=== PATIENT | female | born 1940 | race Caucasian/White ===

== ENCOUNTER 2016-08-07 12:18 | Emergency (ER) | payer MEDICARE, OTHER ==
--- NOTE | ~2016-08-07 | ER ---
PATIENT'S NAME: ROSA MARIA PATEL [facility] AGE: 76 Y [address] ROOM: [place] [address] LOCATION: [facility] ADMIT DATE: 08/07/2016 ER/Outpatient Report DISCHARGE DATE: 08/07/2016 FAMILY PHYSICIAN: Gianni Tyler MD ATTENDING PHYSICIAN: Timothy Brooke ADDENDUM: IMAGING DATA: Head CT report is normal per Radiology. MD SIMA PAYTON/modl /[id number] d: 08/08/16811 t: 08/09/16 1817, OUTPATIENT REPORT
--- NOTE | ~2016-08-07 | ER ---
PATIENT'S NAME: ROSA MARIA PATEL [facility] AGE: 76 Y [address] ROOM: [place] [address] LOCATION: [facility] ADMIT DATE: 08/07/2016 ER/Outpatient Report DISCHARGE DATE: 08/07/2016 FAMILY PHYSICIAN: Gianni Tyler MD ATTENDING PHYSICIAN: Timothy Brooke CHIEF COMPLAINT: Fever. HISTORY OF PRESENT ILLNESS: The patient arrives by ambulance. Her roommate called the ambulance for her this morning. The roommate feels that she has been having fever and has not been acting like her normal self. She is a little more slow to interact than normal. The patient does have a history of being stubborn according to a recent note from the patient's primary care, Dr. Tyler. The patient often does not listen to anesthesiology medical doctor. She denies any other significant issues. 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 She denies any other issues at this time. She has no other specific complaints other than generally feeling weak and tired. PAST MEDICAL HISTORY: Documented on the record and reviewed by me. SOCIAL HISTORY: Documented on the record and reviewed by me. MEDICATIONS: Documented on the record and reviewed by me. ALLERGIES: DOCUMENTED ON THE RECORD AND REVIEWED BY ME. REVIEW OF SYSTEMS: All systems were reviewed and negative except as noted in the HPI. PHYSICAL EXAMINATION: VITAL SIGNS: Blood pressure 125/57; pulse is 104; respiratory rate is 19; temperature 101.6; SpO2 is 88% on room air initially, 98% on 3 L nasal cannula. GENERAL: Age-appropriate female, in no obvious pain or distress, resting comfortably on the exam table. NEUROLOGIC: Awake and alert. No speech deficits. No obvious asymmetry on exam. No facial droop. The patient is oriented to person, place, and situation, but not to date. She does not reveal any obvious asymmetry on PATIENT'S NAME: ROSA MARIA PATEL [facility] AGE: 76 Y [address] ROOM: [place] [address] LOCATION: [facility] ADMIT DATE: 08/07/2016 ER/Outpatient Report DISCHARGE DATE: 08/07/2016 FAMILY PHYSICIAN: Gianni Tyler MD ATTENDING PHYSICIAN: Timothy Brooke exam. HEENT: Normocephalic, atraumatic. The eyes are PERRL. The oropharynx is clear. NECK: Supple. The trachea is midline. CHEST/HEART: Tachycardic. LUNGS: Clear to auscultation bilaterally with no rhonchi, wheezes, or rales. ABDOMEN: Obese, but nontender. No masses. No rebound or guarding. BACK: Nontender to palpation throughout. No significant skin breakdown. : Normal external genitalia, and inspection of the rectum with no significant skin breakdown. EXTREMITIES: Warm and well perfused. There is venous stasis of the bilateral lower extremities and they are obviously in poor repair, but I do not appreciate any acute processes today. SKIN: Otherwise, warm, dry, and intact. LABORATORY DATA AND X-RAYS: Chest x-ray does not reveal any abnormalities per my read. Urinalysis: 100 leukocytes, 15 protein, 25 blood. Micro reveals 10 to 20 wbc's, rare rbc's, no epithelial cells, and rare bacteria. Culture is pending. EKG reveals sinus tachycardia with significant artifact, but no obvious ischemia or dysrhythmia. Troponin is below threshold. CRP is 8.32. Free T4 is 1.1. Sodium is 141, potassium 3.3, chloride 107, CO2 is 26, BUN is 17, creatinine is 1.3, GFR is 40. LFTs are grossly normal. Amylase and lipase are 21 and 55 respectively. CK-MB is 1.7. Serum lactate 0.7. WBC 7.5, hemoglobin is 8.5, platelets of 209. Procalcitonin 0.12. TSH 0.969. INR is 1.1. IMAGING DATA: Head CT report is normal per Radiology. IMPRESSION: 1. Urinary tract infection. 2. Fever without signs of severe sepsis or septic shock. EMERGENCY DEPARTMENT COURSE: The patient was evaluated as above. I do not think that she has pneumonia, ischemia, or other intraabdominal process causing her pain at this time. The CRP is elevated and I am attributing that to her fistulization and general inflammation from her carcinomatosis. Urinalysis is diagnostic of infection. Culture is pending. I gave her Rocephin in the emergency department. The patient also received ibuprofen in addition to some fluids. Her vital signs normalized. She was not requiring any further oxygen. Blood pressures stayed stable, and she was afebrile upon discharge. The patient was at her baseline according to her friend who is with her today. I believe the patient has a UTI and that is the cause of her current extremely mild confusion with fever. I did contact Dr. Hoff, on-call provider for the patient's primary care, Dr. Tyler and made him aware of the patient should she show up in clinic. I explained that there is clinic tomorrow afternoon. I believe it is safe for the patient to go home. The patient did contract that if she were to worsen, PATIENT'S NAME: ROSA MARIA PATEL [facility] AGE: 76 Y [address] ROOM: [place] [address] LOCATION: [facility] ADMIT DATE: 08/07/2016 ER/Outpatient Report DISCHARGE DATE: 08/07/2016 FAMILY PHYSICIAN: Gianni Tyler MD ATTENDING PHYSICIAN: Timothy Brooke she would call the ambulance or return by other means for immediate evaluation in the emergency department. All questions were answered, and the patient was discharged with Bactrim pending cultures of the urine. MD SIMA PAYTON/bharat /[id number] d: 08/08/16 0856 t: 08/09/16 1814, OUTPATIENT REPORT
[~2016-08-07 12:18] MED LIST changes: -BUPROPION XL300 MG PO; -CALCIUM CARBON500 MG PO; -DULCOLAX10 MG R; -K-TAB ER20 MEQ PO; -MILK OF MA400 MG/5 M PO; -OMEPRAZOLE20 MG PO; -PROTONIX40 MG PO; -TRAMADOL HCL50 MG PO; -TYLENOL650 MG R
[2016-08-07 13:02] LABS: BILIRUBIN URINE NEGATIVE (NEGATIVE); BLOOD URINE 25 /UL (NEGATIVE); COLOR URINE YELLOW (YELLOW); GLUCOSE URINE NEGATIVE (NEGATIVE); KETONE URINE NEGATIVE (NEGATIVE); LEUKOCYTES URINE 100 /UL (NEGATIVE); NITRITE URINE NEGATIVE (NEGATIVE); PROTEIN URINE 15 mg/dL (NEGATIVE); SPEC GRAVITY URINE 1.015 (1.003-1.035); TURBIDITY URINE CLEAR (CLEAR); UROBILINOGEN URINE NORMAL (NORMAL)
[2016-08-07 13:06] LABS: RBC URINE RARE #/HPF (NEGATIVE)
[2016-08-07 13:07] LABS: BACTERIA URINE RARE (NEGATIVE); EPITHELIAL URINE NEGATIVE #/HPF (NEGATIVE)
[2016-08-07 13:20] LABS: HEMATOCRIT 26.7 % (33.0-46.0); HEMOGLOBIN 8.5 g/dL (10.0-15.0); MCH 29.5 pg (27.0-34.0); MCHC 31.8 gm/dL (32.0-36.5); MCV 92.7 fl (83.0-98.0); MPV 8.5 fl (9.4-12.4); PLATELET COUNT 209 K/uL (150-450); RBC 2.88 M/uL (3.50-5.50); RDW-CV 16.1 % (11.9-14.6); WBC 7.5 K/uL (4.0-11.0)
[2016-08-07 13:29] LABS: INR - (THERAPEUTIC) 1.1 (0.9-1.1); PROTIME 11.9 SECONDS (9.6-11.1); PTT 32 SECONDS (25-32)
[2016-08-07 13:41] LABS: ALBUMIN 2.8 gm/dL (3.5-5.0); ALK PHOS 96 IU/L (33-138); ALT 13 IU/L (12-78); ANION GAP 11.3 (10.0-19.0); AST 17 IU/L (10-40); BLOOD UREA NITROGEN 17 mg/dL (6-24); CALCIUM 7.8 mg/dL (8.5-10.5); CHLORIDE 107 mMol/L (96-110); CO2 26 mMol/L (22-32); CREATININE 1.3 mg/dL (0.5-1.1); ESTIMATED GFR (MDRD EQUATION) 40; POTASSIUM 3.3 mMol/L (3.7-5.1); SODIUM 141 mMol/L (135-145); TOTAL PROTEIN 6.3 g/dL (6.0-8.4)
[2016-08-07 13:42] LABS: TOTAL BILIRUBIN 0.5 mg/dL (0.0-1.5)
[2016-08-07 13:47] LABS: LYMPHOCYTE # 0.3 K/uL (0.8-4.0); LYMPHOCYTE % 4 %; MONOCYTE # 0.3 K/uL (0.0-1.0); SEGMENTED NEUTROPHIL # 5.2 K/uL (1.8-7.8); SEGMENTED NEUTROPHIL % 69 %
[2016-08-07 13:48] LABS: ABSOLUTE NEUTROPHIL CT (ANC) 6.7 K/uL (1.8-7.8); BANDED NEUTROPHIL # 1.5 K/uL (0.0-0.1); BANDED NEUTROPHILS % 20 %
[2016-10-21] MEDS ORDERED: OMEPRAZOLE20 MG PO (14:09)
[2016-10-21] MEDS ORDERED: PROTONIX40 MG PO (14:11)
[2016-10-21] MEDS ORDERED: TYLENOL325 MG PO (14:23)
[2016-10-21] MEDS ORDERED: TYLENOL650 MG R (14:24)
[2016-10-21] MEDS ORDERED: BUPROPION XL300 MG PO (14:24)
[2016-10-21] MEDS ORDERED: DULCOLAX10 MG R (14:27)
[2016-10-21] MEDS ORDERED: DYAZIDE 37.5-21 EACH PO (14:28)
[2016-10-21] MEDS ORDERED: EFFEXOR XR150 MG PO (14:28)
[2016-10-21] MEDS ORDERED: NEURONTIN600 MG PO (14:28)
[2016-10-21] MEDS ORDERED: MILK OF MA400 MG/5 M PO (14:30)
[2016-10-21] MEDS ORDERED: K-TAB ER20 MEQ PO (14:30)
[2016-10-21] MEDS ORDERED: CALCIUM CARBON500 MG PO (14:32)
== END 2016-08-07 16:38 | disposition disaster alternative care site (69) ==
LOC: GMED 12:18
PROVIDERS: Emergency Medicine
DX: N39.0 Urinary tract infection, site not specified (principal)
CPT/HCPCS: J0696; J2405; J7030

== ENCOUNTER → 2016-08-07 | Outpatient (CLI) | payer MEDICARE, OTHER ==
[~2016-08-07] MED LIST: ADVIL200 MG PO; ARTIFICIAL TEAR15 ML OPHTH; ASPIRIN EC81 MG PO; ASPIRIN LO-DOSE81 MG PO; ASPIRIN325 MG PO; B-12 COMPL1000 MCG/1 SUB-Q; BACTRIM DS1 TAB PO; BIAXIN250 MG PO; BUPROPION XL300 MG PO; CALCIUM CARBON500 MG PO; DEXEDRINE10 M1 PO; DEXTROAMPHETAMIN5 MG PO; DULCOLAX10 MG R; DYAZIDE 37.5-21 EACH PO; EFFEXOR XR150 MG PO; FEOSOL325 MG PO; FLORASTOR250 MG PO; GABAPENTIN600 MG PO; HEPARIN5000 UNIT/ SUB-Q; IMODIUM A-D2 MG PO; K-TAB ER20 MEQ PO; LEVAQUIN500 MG PO; LEVOTHROID (S100 MCG PO; LEVOTHROID(SYN75 MCG PO; LIVALO; LIVALO4 MG PO; MAG-OX-400(241400 MG PO; MILK OF MA400 MG/5 M PO; MYCOSTATIN(NYST15 GM TOP; NEURONTIN600 MG PO; NEXIUM40 MG PO; OMEPRAZOLE20 MG PO; PEPCID; PEPCID20 MG PO; PEPCID40 MG PO; PRINIVIL (ZESTRI5 MG PO; PRINIVIL20 MG PO; PROTONIX40 MG PO; TRAMADOL HCL50 MG PO; TRIACET 0.1% 8080 GM TOP; TYLENOL EXTRA500 MG PO; TYLENOL325 MG PO; TYLENOL650 MG R; VENLAFAXINE HC150 MG PO; ZENZEDI10 MG PO; ZENZEDI5 MG PO; ZOFRAN4 MG IVP; ZOFRAN4 MG PO; ZYRTEC10 MG PO
== END | disposition disaster alternative care site (69) ==
LOC: GAMB 11:38
DX: R53.1 Weakness (principal); R19.7 Diarrhea, unspecified; R11.0 Nausea; Z85.89 Personal history of malignant neoplasm of other organs and systems; Z88.5 Allergy status to narcotic agent
CPT/HCPCS: A0422; A0425; A0427

== ENCOUNTER → 2016-09-04 | Outpatient (CLI) | payer MEDICARE, OTHER ==
[~2016-09-04] MED LIST changes: +BUPROPION XL300 MG PO; +CALCIUM CARBON500 MG PO; +DULCOLAX10 MG R; +K-TAB ER20 MEQ PO; +MILK OF MA400 MG/5 M PO; +OMEPRAZOLE20 MG PO; +PROTONIX40 MG PO; +TRAMADOL HCL50 MG PO; +TYLENOL650 MG R
[2016-09-05 00:07] LABS: BILIRUBIN URINE NEGATIVE (NEGATIVE); BLOOD URINE 150 /UL (NEGATIVE); COLOR URINE YELLOW (YELLOW); GLUCOSE URINE NEGATIVE (NEGATIVE); KETONE URINE NEGATIVE (NEGATIVE); LEUKOCYTES URINE 500 /UL (NEGATIVE); NITRITE URINE NEGATIVE (NEGATIVE); PROTEIN URINE 30 mg/dL (NEGATIVE); SPEC GRAVITY URINE 1.015 (1.003-1.035); TURBIDITY URINE 1+ (CLEAR); UROBILINOGEN URINE NORMAL (NORMAL)
[2016-09-05 00:29] LABS: AMORPHOUS URINE 2+ (NEGATIVE); BACTERIA URINE NEGATIVE (NEGATIVE); EPITHELIAL URINE 0-2 #/HPF (NEGATIVE); WBC URINE 50-100 #/HPF (NEGATIVE)
== END | disposition disaster alternative care site (69) ==
LOC: LJOHN2 23:59
PROVIDERS: Family Medicine
DX: N39.0 Urinary tract infection, site not specified (principal)

== ENCOUNTER → 2016-09-18 | Outpatient (CLI) | payer MEDICARE, OTHER ==
--- NOTE | ~2016-09-18 | ENPV ---
Vascular Lower Extremities DVT Study Procedure Demographics Patient Name ROSA MARIA PATEL Date of Study 09/18/2016 Patient Number [id number] Gender Female Date of 1940 Age 76 Visit Number [id number] Height Accession Number [id number] Weight Room Number BSA BMI Referring Nayeli Braga MD Interpreting [facility] Physician Physician Jose Garcia MD Physician Ordering Physician Nayeli Braga MD Food And Nutrition Professor Pipeline Inspector Boyd Hayes RVT Conclusions Summary Calf veins not well visualized due to blisters covering the calf on both legs. No evidence of DVT proximal to calf veins bilaterally. Procedure Type of Study: Veins:Lower Extremities DVT Study, Venous Duplex Lower Extremity Bilateral. Indications for Study:Swelling of Limb. Appropriate Use Criteria:9 Patient Status:STAT. Study Location:Vascular Lab. Technical Quality:Poor visualization due to body habitus. Velocities are measured in cm/s ; Diameters are measured in cm Right Lower Extremities DVT Study Measurements Right 2D and Doppler Measurements + + + + +------+------+ + !Location !Visualized!Compressibility!Thrombosis!Signal!Reflux!Reflux ! ! ! ! ! ! ! !(sec) ! + + + + +------+------+ + !GSV Thigh !Yes !Yes !None !Phasic!No ! ! + + + + +------+------+ + !Common !Yes !Yes !None !Phasic!No ! ! !Femoral ! ! ! ! ! ! ! + + + + +------+------+ + !Prox !Yes !Yes !None !Phasic!No ! ! !Femoral ! ! ! ! ! ! ! + + + + +------+------+ + !Mid Femoral!Yes !Yes !None !Phasic!No ! ! + + + + +------+------+ + !Dist !Yes !Yes !None !Phasic!No ! ! !Femoral ! ! ! ! ! ! ! + + + + +------+------+ + !Popliteal !Yes !Yes !None !Phasic!No ! ! + + + + +------+------+ + !Gastroc !Yes !Yes !None !Phasic!No ! ! + + + + +------+------+ + !PTV !Yes !Yes !None !Phasic!No ! ! + + + + +------+------+ + !Peroneal !Yes !Yes !None !Phasic!No ! ! + + + + +------+------+ + Left Lower Extremities DVT Study Measurements Left 2D and Doppler Measurements + + + + +------+------+ + !Location !Visualized!Compressibility!Thrombosis!Signal!Reflux!Reflux ! ! ! ! ! ! ! !(sec) ! + + + + +------+------+ + !GSV Thigh !Yes !Yes !None !Phasic!No ! ! + + + + +------+------+ + !Common !Yes !Yes !None !Phasic!No ! ! !Femoral ! ! ! ! ! ! ! + + + + +------+------+ + !Prox !Yes !Yes !None !Phasic!No ! ! !Femoral ! ! ! ! ! ! ! + + + + +------+------+ + !Mid Femoral!Yes !Yes !None !Phasic!No ! ! + + + + +------+------+ + !Dist !Yes !Yes !None !Phasic!No ! ! !Femoral ! ! ! ! ! ! ! + + + + +------+------+ + !Popliteal !Yes !Yes !None !Phasic!No ! ! + + + + +------+------+ + !Gastroc !Yes !Yes !None !Phasic!No ! ! + + + + +------+------+ + !PTV !Yes !Yes !None !Phasic!No ! ! + + + + +------+------+ + !Peroneal !Yes !Yes !None !Phasic!No ! ! + + + + +------+------+ + Signature dtt: dtd: 09/18/16 1126 Physician Self Edit
== END | disposition disaster alternative care site (69) ==
LOC: GCAR 10:42
DX: M79.89 Other specified soft tissue disorders (principal); M79.604 Pain in right leg; M79.605 Pain in left leg; R23.8 Other skin changes; R79.1 Abnormal coagulation profile; Z85.9 Personal history of malignant neoplasm, unspecified

== ENCOUNTER → 2016-10-07 | Outpatient (CLI) | payer MEDICARE, OTHER ==
[2016-10-07 08:32] LABS: BILIRUBIN URINE NEGATIVE (NEGATIVE); BLOOD URINE 25 /UL (NEGATIVE); COLOR URINE YELLOW (YELLOW); GLUCOSE URINE NEGATIVE (NEGATIVE); KETONE URINE NEGATIVE (NEGATIVE); LEUKOCYTES URINE 25 /UL (NEGATIVE); NITRITE URINE NEGATIVE (NEGATIVE); PH URINE 6.5 (4.0-8.0); PROTEIN URINE 15 mg/dL (NEGATIVE); TURBIDITY URINE CLEAR (CLEAR); UROBILINOGEN URINE NORMAL (NORMAL)
[2016-10-07 08:34] LABS: BACTERIA URINE FEW (NEGATIVE); EPITHELIAL URINE NEGATIVE #/HPF (NEGATIVE); RBC URINE 0-2 #/HPF (NEGATIVE)
== END | disposition disaster alternative care site (69) ==
LOC: LJOHN2 08:18
PROVIDERS: Family Medicine
DX: N39.0 Urinary tract infection, site not specified (principal)

== ENCOUNTER → 2016-10-22 | Outpatient (CLI) | payer MEDICARE, OTHER | END | disposition disaster alternative care site (69) | LOC: GOPD 10-21 12:30 | DX: R10.9 Unspecified abdominal pain (principal); N13.30 Unspecified hydronephrosis ==

== ENCOUNTER 2016-11-03 17:20 | Inpatient (IN) | payer MEDICARE, OTHER ==
[~2016-11-03] VITALS: Ht 160 cm; Wt 93.4 kg
--- NOTE | ~2016-11-03 | HP ---
PATIENT'S NAME: ROSA MARIA PATEL [facility] AGE: 76 Y [address] ROOM: [address] [place], [place] [address] LOCATION: [facility] ADMIT DATE: 11/03/2016 History & Physical DISCHARGE DATE: FAMILY PHYSICIAN: Gianni Tyler MD ATTENDING PHYSICIAN: Gianni Tyler DATE OF SERVICE: 11/05/2016 CHIEF COMPLAINT: C. diff anemia and gastric outlet obstruction. 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 She has undergone previous chemo treatments and initial cytoreductive operation and has significant recurrent disease. Over the last couple of weeks, her gastric outlet obstruction has been such that she really only tolerates clear liquids. In the last few days, she became significantly weak and had fevers and significant diarrhea and has been found to have C. diff colitis along with significant anemia that has responded to transfusions here in the hospital. CT scan revealed that almost a near complete gastric outlet obstruction at this time, but was taken during her acute illness. She had been vomiting over the last couple days. Currently, she is quite somnolent, but arousable and appropriate. ALLERGIES: PLEASE SEE HOSPITAL LIST FOR COMPLETE LIST OF ALLERGIES, BUT IN BRIEF, SHE IS ALLERGIC TO NIACIN, MORPHINE, ATROPINE, CIPROFLOXACIN, AND MEPERIDINE. MEDICATIONS: Please see hospital list for complete list of medications. PAST MEDICAL HISTORY: Significant for acute blood loss anemia as above, depression, stage IV ovarian cancer, frequent falls, rectovaginal fistula, hyperlipidemia, hypertension, hypothyroidism, mitral valve regurgitation, morbid obesity, narcolepsy, prediabetes, Raynaud's, history of appendectomy, history of breast biopsy, history of carpal tunnel surgery, history of colonoscopy and endoscopies, history of left hand surgery, history of hemorrhoid surgery and fistulectomy, history of ureteral stent exchanges, history of laminectomy, history of knee surgery, history of laparotomy, bilateral oophorectomy, omentectomy, cytoreductive surgery, and history of tonsillectomy and adenoidectomy. SOCIAL HISTORY: PATIENT'S NAME: ROSA MARIA PATEL [facility] AGE: 76 Y [address] ROOM: [id number] [place], [place] [address] [facility] ADMIT DATE: 11/03/2016 History & Physical DISCHARGE DATE: FAMILY PHYSICIAN: Gianni Tyler MD ATTENDING PHYSICIAN: Gianin Tyler She has 2 daughters. 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 Previous tobacco user. No alcohol or illicit drug use or abuse. FAMILY HISTORY: One sister had colon cancer; otherwise, noncontributory. REVIEW OF SYSTEMS: She is somewhat somnolent this evening and is not a very reliable history given discussion with her and her family. She does admit to having some previous melanotic stools, reddish sputum, but otherwise a full 10-point system was discussed with the patient and was negative except for as discussed above as well as the vaginal discharge. PHYSICAL EXAMINATION: GENERAL: Somnolent, but arousable and appropriate. VITAL SIGNS: Febrile to 102, vital signs are otherwise stable. HEENT: Sclerae anicteric. NECK: Supple. Trachea is midline. Breathing is nonlabored. ABDOMEN: Soft, mildly distended, mildly tender to palpation in the epigastrium, but no rebound, no guarding, palpable soft tissue nodules along the abdomen, no hernias. EXTREMITIES: Bilateral lower extremities are warm. Brisk capillary refill. A +1 edema. No obvious skin lesions or rashes. LABORATORY EVALUATION: Hemoglobin is up to 10.3, although it is down to 5 at admission. C. diff is positive. Urine culture shows Streptococcus species. Sodium 134, potassium 2.9, chloride 101, CO2 24, BUN is 12, creatinine 0.8, and calcium is 7.5. UA shows 25 leukocytes, 15 protein, 5 ketones, and 10-20 wbcs. RADIOLOGY REVIEW: Chest x-ray from November 04 is stable without pneumonia or CHF. Port-A-Cath in place. CT scan of the abdomen and pelvis shows significant changes consistent with ovarian carcinomatosis, gastric outlet obstruction, anasarca, and diffuse nodular opacity in the left lung. ASSESSMENT AND PLAN: The main reason why I was called was for consideration of surgical options in regard to her what has up till recently have been partial gastric outlet obstruction, now is complete, but probably the complete nature is not clear if this is related to tumor progression versus just an ileus associated with her acute illness. It will be impossible to discern which one of those things it is at this point and we would have to wait for her to recover from this acute insult to see whether or not she can go back to at least tolerating her clears. As far as surgical options, we discussed possibilities such as PATIENT'S NAME: ROSA MARIA PATEL [facility] AGE: 76 Y [address] ROOM: [place] [address] [facility] ADMIT DATE: 11/03/2016 History & Physical DISCHARGE DATE: FAMILY PHYSICIAN: Gianni Tyler MD ATTENDING PHYSICIAN: Gianni Tyler resection or bypass and that she would not be a good candidate for either one due to her extensive carcinomatosis, status post multiple lines of treatment, the only palliative option we could offer would be a G-tube for decompression and that would only be a palliative thing would not allow us to really give any nutrition via that route and thus I would only recommend if she has a complete obstruction that is causing her symptoms. At this point, we cannot tease whether or not her obstruction is related to just a dynamic ileus from her acute illness or progression of disease. Once she improves, we can further evaluate the status of her ability to take p.o. and her discomfort and discussed that at a later time. No need for acute surgical intervention at this time. General Surgery will sign off at this point. I discussed this with her and her 2 daughters and they are agreeable to this plan. They are interested in starting some sort of nutritional support and I explained to them that I think TPN would be a good option once they can get access through a PICC for her to get that in the meanwhile. They have already had multiple discussions with Palliative Care and thus I did not approach this subject again. I understand it has been discussed with them multiple times. Again, General Surgery will sign off at this time. Please call with any further questions or concerns. MD REBEL MORRIS (JAKE)/bharat /[id number] D: 94 HISTORY & PHYSICAL
--- NOTE | ~2016-11-03 | DS ---
PATIENT'S NAME: ROSA MARIA PATEL [facility] AGE: 76 Y [address] ROOM: [address] [place], [place] [address] LOCATION: [facility] ADMIT DATE: 11/03/2016 Discharge Summary DISCHARGE DATE: 11/17/2016 FAMILY PHYSICIAN: Cee Tyler MD ATTENDING PHYSICIAN: Cee Tyler FINAL DIAGNOSES: 1. Acute blood loss anemia status post transfusion of 4 units of packed red blood cells. 2. C. difficile colitis, resolved. 3. Gastric outlet obstruction secondary to tumor. 4. History of ovarian carcinoma with metastases throughout the belly. 5. Morbid obesity. 6. Rectovaginal fistula. 7. History of narcolepsy, but currently doing awesome without her medications at this point. 8. Hypertension. 9. Depression. 10. History of frequent falls. 11. Hypothyroidism. 12. Mitral valve regurgitation. 13. Prediabetes. 14. Raynaud disease. REASON FOR ADMIT: Briefly, this 76-year-old female came in with acute blood loss anemia. She has a history of ovarian carcinoma with peritoneal carcinomatosis. She was having weakness and fatigue as well. She was very much bedbound and not able to get up and move a lot. She was having nausea, vomiting and diarrhea at the time of admission specifically going for a couple weeks. She did have testing positive for C. diff. She did have some black stools as well and had a low-grade temperature of 100.9 upon admission. Please see dictated H and P for full details. HOSPITAL COURSE: The patient was initially admitted with a hemoglobin of 5. She was given 3 units of packed red blood cells. She had GI consult ending up to a scope and basically showed a gastric outlet obstruction secondary to tumor. She had done well with chemotherapy to shrink the tumor in the past. She was currently on Protonix twice a day. Hemoglobin did come up and kind of waxed and waned a little bit, got a total of 5 units, but really has been pretty stable over the last several days without the need for transfusions. She again has been really doing pretty well from the anemia standpoint. She has had a history of C. diff colitis tested positive. She is on p.o. Flagyl for that. She is needing some antibiotics because of her UTI. She is on amoxicillin for that and that was secondary to Enterococcus faecalis but that was susceptible to ampicillin, so she was placed on that and did well. She PATIENT'S NAME: ROSA MARIA PATEL [facility] AGE: 76 Y [address] ROOM: [address] [place], [place] [address] LOCATION: [facility]U ADMIT DATE: 11/03/2016 Discharge Summary DISCHARGE DATE: 11/17/2016 FAMILY PHYSICIAN: Cee Tyler MD ATTENDING PHYSICIAN: Cee Tyler has really no fevers for at least a week before discharge. It was felt to me she has some fluid on the left lung as well, maybe a pneumonitis percolating, so she was placed on p.o. levofloxacin. She did great with that, again was afebrile, still on room air and saturating a very clear at the time of discharge. Because of gastric outlet obstruction, she was started on TPN. She was continued with that, but was actually able to drink fluids and was on a full liquid diet prior to discharge. She is actually tolerating that part well. She did have some significant issues with hypokalemia. I got multiple rounds of IV potassium as well as magnesium for a low mag level. At the time of discharge, her potassium level was very good at 3.7. Mag level was 1.9 on the date of the discharge as well. She does have issues with rectovaginal fistula. She is actually tolerating that pretty well at this point. No signs of secondary infection there. The patient had a long long long history of narcolepsy which she has been taking dextroamphetamine for basically ever since I have met her. They were not able to get that to her initially in the hospital and actually she was the best that I have seen her ever since I have been taking care of her as far as her mentation and her ability to stay awake and so forth. Much to her chagrin, we did go ahead and continued her off dextroamphetamine and she has done great. She is having really no issues of the narcolepsy at all. On the morning of the , she is really doing pretty well. She has been accepted to be in a [facility] facility in [place] closer to her daughters. She will establish care with their physicians as well. DISCHARGE INSTRUCTIONS: She will follow up with her primary care provider within the next week. She will be on a full liquid diet. Consideration will be given to possible chemotherapy to shrink the tumor to see she can get her to eat full diet again. Weightbearing status is full. She will get PT and OT there. I do recommend checking a CBC and a BMP on the . DISCHARGE MEDICATIONS: Include the followin. Calcium carbonate p.r.n. 2. Bupropion XL 300 mg once a day. 3. Vitamin B 1000 mcg subcu every 28 days. 4. Gabapentin 1200 mg at nighttime and 600 mg q.a.m. 5. Levothyroxine 100 mcg daily. 6. Mag oxide 400 mg b.i.d. 7. Pantoprazole 40 mg b.i.d. 8. Mycostatin p.r.n. 9. Potassium 20 mEq 3 times a day. 10. Effexor XR 150 once a day. PATIENT'S NAME: ROSA MARIA PATEL [facility] AGE: 76 Y [address] ROOM: [place] [address] [facility] ADMIT DATE: 11/03/2016 Discharge Summary DISCHARGE DATE: 11/17/2016 FAMILY PHYSICIAN: Cee Tyler MD ATTENDING PHYSICIAN: Cee Tyler 11. Tylenol on a p.r.n. basis. 12. Artificial Tears p.r.n. 13. Dulcolax suppository p.r.n. 14. Milk of Mag and Zofran on a p.r.n. basis. 15. Tramadol 50 mg every 4 hours p.r.n. 16. Aspirin 81 mg daily. 17. Zyrtec 10 mg daily. 18. We have stopped her dextroamphetamine. 19. I have also stopped her Livalo as I do not like the benefits that exceed the risks. 20. Triamterene hydrochlorothiazide 37.5/25 one p.o. daily. She will call or return if she has any further issues. CEE TYLER MD TAB/modl /[id number] d: 11/17/16736 t: 12/01/16 0738, DISCHARGE SUMMARY
--- NOTE | ~2016-11-03 | CON ---
PATIENT'S NAME: ROSA MARIA PATEL [facility] AGE: 76 Y [address] ROOM: [id number] ONLY, [place] [id number] LOCATION: GPCU ADMIT DATE: 11/03/2016 Consultation DISCHARGE DATE: FAMILY PHYSICIAN: Gianni Tyler MD ATTENDING PHYSICIAN: Gianni Tyler DATE OF CONSULTATION: 11/04/2016 REFERRING PHYSICIAN: Gianni Tyler MD REASON FOR CONSULTATION: Palliative care referral for goals of care. HISTORY OF PRESENT ILLNESS: This 76-year-old female comes in with acute blood loss. Has a known history of ovarian carcinoma with peritoneal carcinomatosis, hypothyroidism, depression, pre-diabetes. She does have abdominal pain. States she does have a mass in umbilicus area, had developed a few weeks ago, getting worse, had seen Dr. Chen, area is not painful but occasionally she just has sharp pains that radiate up into her esophagus and mid epigastric area, is sharp. Had been having a harsh cough and spitting up blood-tinged phlegm and passing some dark stools for the past few days. Currently was rating her pain about a 4/10, but during conversation went up to an 8/10 in mid epigastric area. States it just comes all of a sudden, she will be talking or after she coughs and it will just be sharp. Denies any nausea or vomiting. Decreased appetite. No shortness of breath. She had been given 3 units of packed red blood cells and is scheduled for EGD in the morning. She previously had a colonoscopy at [facility], [facility]. PAST MEDICAL HISTORY: Acute blood-loss anemia; depression; frequent falls; some vaginal bleeding and discharge since November of 2015; hyperlipidemia; hypertension; hypothyroidism; mitral valve regurgitation; morbid obesity; narcolepsy; ovarian carcinomatosis with peritoneal carcinomatosis, status post 6 rounds of chemotherapy and radiation; pre-diabetes; Raynaud phenomena; rectovaginal fistula diagnosed in 07/02/2016. PAST SURGICAL HISTORY: Appendectomy, breast biopsy, carpal tunnel, colonoscopy at [facility], multiple cystoscopies, left hand surgery, hemorrhoid surgery, hysterectomy, left knee replacement, right knee replacement, laminectomy, laparotomy, oophorectomy, fistula repair in 2015, Dr. Suero injected right ankle with cortisone, tonsillectomy, adenoidectomy. PATIENT'S NAME: ROSA MARIA PATEL [facility] AGE: 76 Y [address] ROOM: [id number] ONLY, [place] [address] [facility] ADMIT DATE: 11/03/2016 Consultation DISCHARGE DATE: FAMILY PHYSICIAN: Gianni Tyler MD ATTENDING PHYSICIAN: Gianni Tyler SOCIAL HISTORY: Has two daughters. Is a retired nurse. Former tobacco smoker. No alcohol or illicit drug use. FAMILY HISTORY: Mother--dementia, hyperlipidemia, hypertension and mother also had osteoporosis, at the age of 89. Father in a car accident, had diabetes. Sister had colon cancer. REVIEW OF SYSTEMS:All systems reviewwed and was negative except as mentioned in the HPI and listed below. GI: She has been having some diarrhea, black. RESPIRATORY: Coughing up some reddish sputum. PSYCH: Some history of depression. PHYSICAL EXAMINATION: GENERAL: This is an obese 76-year-old female, well developed. Alert and oriented, in no acute distress, but falls asleep during conversation at times due to her narcolepsy. VITAL SIGNS: She is 5 feet 3 inches, weighs 209 pounds with a BMI of 37.1. SKIN: Warm and dry. Color pale. HEENT: Head; normocephalic, atraumatic. Sclerae nonicteric. Conjunctivae, pale pink. Mouth is pink and moist without exudate. LYMPH: No cervical adenopathy or thyromegaly. RESPIRATORY: Clear to auscultation bilaterally. CARDIAC: S1, S2 without murmurs or bruits. No lower extremity edema. NEUROLOGIC: Grossly intact. No deficits. MUSCULOSKELETAL: Appropriate range of motion. EXTREMITIES: No cyanosis or deformities. ABDOMEN: Soft. Noted mass in area above umbilicus. States it has been there for a while, is hard, nontender. Positive bowel tones. Last BM on 11/04/2016. Palliative performance scale is 30%, totally bed-bound, unable do any activity, total care, reduced intake, conscious level is full with periods of drowsiness. IMPRESSION: Abdominal pain, weakness, and fatigue. PLAN: Discussion of chronic condition. Met with the patient and her daughter, Teresa Amos. They have a good understanding of her ovarian cancer with PATIENT'S NAME: ROSA MARIA PATEL [facility] AGE: 76 Y [address] ROOM: [id number] [place] [address] [facility] ADMIT DATE: 11/03/2016 Consultation DISCHARGE DATE: FAMILY PHYSICIAN: Gianni Tyler MD ATTENDING PHYSICIAN: Gianni Tyler carcinomatosis. History of chemo and radiation and recurrence of mass in abdomen, had seen Dr. Chen recently. Known history of narcolepsy and declining status, last had been at [facility] and daughter was going to move the patient closer to [place] due to decline in status. Had arranged before admission. Discussion of goals was done. 1. To continue with EGD tomorrow to find out cause of blood loss. 2. To get back tender fourdrinier to home with family, was going to move to an [facility] but now is considering a fdc facility due to the patient's decline in status. 3. Discussion of options if any treatment after EGD. CODE STATUS AND ADVANCE DIRECTIVE: The patient is currently a full code. She does have medical power of personal injury attorney papers on chart. We will discuss code status more tomorrow after procedure. Reviewed the code status and POLST form with daughter and will discuss more tomorrow. Total time was 65 minutes with 55 minutes for education on chronic diseases, goals of care, and advance directives. Thank you for allowing me to assist this patient and family. JOSELYN PEREZ NP FOR MD JOSE MANUEL ORNELAS/bharat /[id number] d: 11/04/162225 t: 11/19/16 1228, CONSULTATION REPORT
--- NOTE | ~2016-11-03 | CON ---
PATIENT'S NAME: ROSA MARIA PATEL [facility] AGE: 76 Y [address] ROOM: G6324 [place], [place] [address] LOCATION: GPCU ADMIT DATE: 11/03/2016 Consultation DISCHARGE DATE: FAMILY PHYSICIAN: Gianni Tyler MD ATTENDING PHYSICIAN: Gianni Tyler DATE OF CONSULTATION: 11/04/2016 REFERRING PHYSICIAN: Danielle Chen MD REASON FOR CONSULTATION: Acute blood loss anemia. HISTORY OF PRESENT ILLNESS: This is a very pleasant 76-year-old female with past medical history significant for history of acute blood loss anemia, hypothyroidism, depression, ovarian carcinoma with peritoneal carcinomatosis, and prediabetes. The patient presented to her primary care being, Dr. Gianni Tyler with acute abdominal pain, nausea, vomiting, and diarrhea. At that time, the patient states that this symptoms have been present for 1 to 2 weeks. She also complained of pain in the midepigastric area that has progressively worsened. She also does note having "black stools" for the last few days. She also had a fever of 100.9 degrees for the past day prior to admission. On evaluation, her hemoglobin was low at 5.0. The patient was then transferred to [facility] for admission and workup. The patient was seen and examined. She has been given 3 units of packed red blood cells. Again, the patient does endorse mid-epigastric discomfort as well as melena stool for the past few days. In review of records, she did undergo an upper endoscopy on 10/11/2014, for acute blood loss anemia. At that time, it did show mild gastritis. She previously had undergone a colonoscopy in 2011, and at the time of evaluation in 2014, it was recommended to undergo a colonoscopy. When I discussed this with the patient, she did state that she thought she had one more recent than 2012 completed at [facility]. Again, the patient has been feeling slightly better after being transfused blood. She currently denies any chest pain, chest pressure, shortness of breath, fever, chills, or any bo abdominal pain. She does endorse some mild mid-epigastric discomfort at times. PAST MEDICAL HISTORY: Acute blood loss anemia; depression; frequent falls, it appears that she had some vaginal bleeding in 2015, requiring blood transfusion as well; hyperlipidemia; hypertension; hypothyroidism; mitral valve regurgitation; morbid obesity; narcolepsy; ovarian carcinoma with peritoneal carcinomatosis status post 6 rounds of chemotherapy; prediabetes; Raynaud phenomenon; and rectovaginal fistula diagnosed in 07/02/2016. PATIENT'S NAME: ROSA MARIA PATEL [facility] AGE: 76 Y [address] ROOM: [place] [address] LOCATION: GPCU ADMIT DATE: 11/03/2016 Consultation DISCHARGE DATE: FAMILY PHYSICIAN: Gianni Tyler MD ATTENDING PHYSICIAN: Gianni Tyler PAST SURGICAL HISTORY: Appendectomy; breast biopsy; carpal tunnel; colonoscopy recently, we will request for these records to be sent to us; multiple cystoscopies; left hand surgery; hemorrhoid surgery; hysterectomy; left knee replacement; right knee replacement; laminectomy; laparotomy; oophorectomy; fistula repair in 2016; Dr. Suero completed right ankle injection, cortisone; tonsillectomy; and adenoidectomy. SOCIAL HISTORY: The patient is a former tobacco smoker. She denies any current tobacco, alcohol, or illicit drug use. FAMILY HISTORY: The patient's mother had dementia, hyperlipidemia, and hypertension. She denies any gastrointestinal diseases or cancers to her knowledge. ALLERGIES: NIACIN, MORPHINE, ATROPINE, CIPROFLOXACIN, AND MEPERIDINE. CURRENT MEDICATIONS: Please refer to the medication administration record. REVIEW OF SYSTEMS: All point review of systems was completed. All were negative except for those identified in the History of Present Illness. PHYSICAL EXAMINATION: GENERAL: A very pleasant 76-year-old female, who appears to be in no acute distress. VITAL SIGNS: Temperature 98.7, pulse of 82, respirations of 18, blood pressure 122/56, and oxygen saturations 93% on room air. SKIN: [place], warm, and dry. No jaundice. HEENT: Head is normocephalic and atraumatic. Pupils are equal, round, and reactive to light. Sclerae are clear, nonicteric. Oral mucosa is pink and moist. No thyromegaly. NECK: Soft and supple. CARDIOVASCULAR: Regular. Normal S1 and S2. RESPIRATORY: Respirations even and unlabored. LUNGS: Clear to auscultation. ABDOMEN: Nontender to palpation. Normal bowel sounds. Noted mass to the mid- epigastric area, that she states has been there for "a long time." Bowel sounds positive x4 quadrants. MUSCULOSKELETAL: No muscle weakness or atrophy. EXTREMITIES: No clubbing or cyanosis. 1+ edema noted to bilateral lower PATIENT'S NAME: ROSA MARIA PATEL [facility] AGE: 76 Y [address] ROOM: [facility] [place] [address] LOCATION: GPCU ADMIT DATE: 11/03/2016 Consultation DISCHARGE DATE: FAMILY PHYSICIAN: Gianni Tyler MD ATTENDING PHYSICIAN: Gianni Tyler extremities. NEUROLOGICAL: Grossly nonfocal. LABS AND DIAGNOSTICS: Laboratory reviewed from the outside facility did show a white blood cell count of 16.7, hemoglobin of 5.0, hematocrit of 15.6, and platelets of 263. Chemistry panel included sodium 133, potassium of 3.1, chloride of 97, CO2 of 26, glucose 137, BUN of 27, creatinine of 1.11, total protein 5.6, albumin of 3.0, ALT less than 11, AST 11, alkaline phosphatase 58, total bilirubin 0.4, and amylase was 22. Laboratory obtained this morning at 4:45 a.m. showed a white blood cell count of 13.8, hemoglobin of 6.5, hematocrit of 19.8, and platelets of 245. Chemistry panel includes a glucose of 87, BUN of 22, and creatinine 1.0. Sodium 134, potassium of 3.1, chloride of 98, and CO2 of 26. Liver enzymes are within normal limits. ASSESSMENT AND PLAN: Again, this is a very pleasant 76-year-old female, who was admitted with acute blood loss anemia with hemoglobin of 5.0. The patient has been given 3 units of packed red blood cells. She does have a history of acute blood loss anemia secondary to vaginal bleeding as well as mild gastritis seen on an upper endoscopy in September of 2014. At this time, we will request for these records to be sent to us from [facility], regarding recent colonoscopy. The patient most likely will need an upper endoscopy with or without a colonoscopy, if colonoscopy was not completed since 2011, for further evaluation of her anemia. The patient is currently on Protonix twice daily as this needs to be continued. On my evaluation, the patient was having clear liquids this morning. I will discuss this with her medical team for further evaluation and for possible proceeding with the endoscopy. Thank you for this consult. MARY ULLOA APRN FOR MD GLORIA ZUNIGA/patl /[id number] d: 11/04/16 1350 t: 12/06/1609, CONSULTATION REPORT
[~2016-11-03 17:20] MED LIST changes: -TRAMADOL HCL50 MG PO
[2016-11-03] MEDS ORDERED: LIVALO4 MG PO (19:05)
--- NOTE | 2016-11-03 19:22 | NUR ---
76 Y/O FEMALE ADMITTED [facility] DOCTORS OFFICE FOR ACUTE BLOOD LOSS ANEMIA AND A G.I. BLEED. PT HAS LARGE LOOSE BLACK STOOLS AND IS ALSO COUGHING & SPITTING UP COFFEE GROUND LOOKING SPUTUM. PT HAS C/O MID STERNAL CHEST PRESSURE FOR THE PAST FEW WEEKS. SEVERAL ALLERGIES - PLEASE SEE ALLERGIES MEDICAL & SURGICAL HISTORY - CERVICAL CA YRS AGO, PERITONEAL CANCER SX IN 2013, & CURRENTLY HAS A PELVIC TUMOR. PT HAS HAD 3 ROUNDS OF CHEMO & RADIATION IN PAST FOR THIS. PT HAS FISTULAS IN RECTOM & BLADDER, HAS URETERAL STENT, POWER PORT, HTN, HIGH CHOL, DIVERTICULITIS. MANY SURGERIES IN LIFETIME & OTHER MEDICAL HISTORY - PLEASE SEE ADMISSION ASSESMENT PART 1 FOR THE REST OF PT HISTORY. REPORT GIVEN TO PT PRIMARY CARE NURSE CARLENE CORTÉS ADM EDUCATION DONE
[2016-11-03] MEDS ORDERED: TRAMADOL HCL50 MG PO (19:24)
--- NOTE | 2016-11-04 04:27 | NUR ---
Significant Event: Patient alert and oriented to self and place, but disoriented to time. VSS on RA. 2 units of PRBC transfused, will start 3rd unit before shift change. Patient had 2 incontinent bowel movements. Both diarrhea, black and tarry. Patient takes pills whole with water. Patient has harsh cough with blackish green sputum. Patinet is very drowsy, slow to respond. Power port to L) chest accessed. Good blood return. Patient is incontinent of both urine and stool. Follow up: Hematest stools. Will transfuse 3rd unit of blood.
[2016-11-04 05:22] LABS: ALBUMIN 2.2 gm/dL (3.5-5.0); ANION GAP 13.1 (10.0-19.0); CALCIUM 7.3 mg/dL (8.5-10.5); POTASSIUM 3.1 mMol/L (3.7-5.1); TOTAL BILIRUBIN 1.2 mg/dL (0.0-1.5); TOTAL PROTEIN 5.3 g/dL (6.0-8.4)
[2016-11-04 05:30] LABS: MCV 92.5 fl (83.0-98.0); MPV 8.6 fl (9.4-12.4); PLATELET COUNT 245 K/uL (150-450); WBC 13.8 K/uL (4.0-11.0)
[2016-11-04 05:35] LABS: HEMATOCRIT 19.8 % (33.0-46.0); HEMOGLOBIN 6.5 g/dL (10.0-15.0); MCH 30.4 pg (27.0-34.0); MCHC 32.8 gm/dL (32.0-36.5); RBC 2.14 M/uL (3.50-5.50); RDW-CV 18.4 % (11.9-14.6)
[2016-11-04 06:02] LABS: ABSOLUTE NEUTROPHIL CT (ANC) 13.3 K/uL (1.8-7.8); BANDED NEUTROPHIL # 3.5 K/uL (0.0-0.1); BANDED NEUTROPHILS % 25 %; LYMPHOCYTE # 0.1 K/uL (0.8-4.0); LYMPHOCYTE % 1 %; MONOCYTE # 0.1 K/uL (0.0-1.0); SEGMENTED NEUTROPHIL # 9.8 K/uL (1.8-7.8); SEGMENTED NEUTROPHIL % 71 %
[2016-11-04 11:52] LABS: BILIRUBIN URINE NEGATIVE (NEGATIVE); BLOOD URINE 50 /UL (NEGATIVE); GLUCOSE URINE NEGATIVE (NEGATIVE); KETONE URINE 5 mg/dL (NEGATIVE); LEUKOCYTES URINE 25 /UL (NEGATIVE); NITRITE URINE NEGATIVE (NEGATIVE); PROTEIN URINE 15 mg/dL (NEGATIVE); UROBILINOGEN URINE NORMAL (NORMAL)
[2016-11-04 11:56] LABS: COLOR URINE YELLOW (YELLOW); TURBIDITY URINE 1+ (CLEAR)
[2016-11-04 12:00] LABS: BACTERIA URINE MODERATE (NEGATIVE)
--- NOTE | 2016-11-04 15:15 | NUR ---
Received referral from Dr. Tyler to talk to daughter about transfer to [place] SNF. Introduced self and role of care management to patient and her daughter, Teresa. Patient has been at [facility] since May. Teresa says mom was doing better until a few weeks ago and they have made arrangements for her to move to [facility] in [place], [place]. She says several of her children live in the area and it would be easier for everyone. Teresa says she was to be discharged from [facility] on Tuesday and admitted to [facility] on Tuesday. She does not think patient can do [facility] at this time and will need SNF. She says the special education administrator and the nurse at the [facility] on out this week. Told her we can try to get her to a SNF, but if we can't then she could go back to [facility] until something opens up. Teresa voices understanding. She says their is a [facility] associated with the [facility] and only a few blocks a part. That would be their first choice for skilled. SHe says Angelica Stone MD has already accepted her a patient when she moves and they have already had records sent to him. Contacted [facility] late morning and the person I need to talk to is out at this time and will call me back. Called this afternoon as have not heard back from SNF. Spoke with Gianni at [facility] and they do have beds available. Referral faxed to Gianni at [facility] and await their decision. Will follow.
--- NOTE | 2016-11-04 16:53 | NUR ---
Significant Event:Patient had had several incont stools, one sent to lab for hematest. It was positive. Patient was straight cath, UA sent to lab. Hgb this morning was 6.5, will recheck at 1800. GI consult, Angelica Luo saw. Still waiting for the doctor to see. Bottom is very red and sore. Dexamphentamine started today. Patient taking clear liquids with out N/V. Is coughing up pjlem at times. CXR looked ok. Follow up:H&H at 1800, call if Hgb <8.0
[2016-11-04 18:14] LABS: HEMATOCRIT 23.4 % (33.0-46.0)
[2016-11-04 18:17] LABS: HEMOGLOBIN 7.7 g/dL (10.0-15.0)
--- NOTE | 2016-11-05 04:41 | NUR ---
Significant Event: Patient alert and oriented to self and place. Somewhat disoriented to time. VSS on RA. 1 unit of PRBC given for Hgb of 7.7. CBC will be drawn this AM. Frequent incontinence of both urine and stool. Patient was positive for C-diff this shift. Contact isolation initiated and received orders for flagyl. Patient has been NPO since midnight. Harsh, wet cough with thick sputum. Sputum has cleared up and is no longer dark colored. Follow up: Upper GI this AM.
[2016-11-05 06:05] LABS: HEMOGLOBIN 8.5 g/dL (10.0-15.0); LYMPHOCYTE # 0.6 K/uL (0.8-4.0); MCH 29.5 pg (27.0-34.0); MCHC 32.7 gm/dL (32.0-36.5); MCV 90.3 fl (83.0-98.0); MPV 8.6 fl (9.4-12.4); NEUTROPHIL # (ANC) 8.1 K/uL (1.8-7.8); NEUTROPHIL % 82.9 %; NRBC % 0 /100WBC (0-0.00); PLATELET COUNT 218 K/uL (150-450); RDW-CV 18.3 % (11.9-14.6); WBC 9.8 K/uL (4.0-11.0)
[2016-11-05 06:06] LABS: BASOPHIL % 0.4 %; EOSINOPHIL # 0.3 K/uL (0.0-0.5); EOSINOPHIL % 2.9 %; IMMATURE GRANULOCYTE # 0.1 K/uL (0.0-0.3); IMMATURE GRANULOCYTE % 1.4 %; LYMPHOCYTE % 5.6 %; MONOCYTE # 0.7 K/uL (0.0-1.0); MONOCYTE % 6.8 %
[2016-11-05 06:09] LABS: RBC 2.88 M/uL (3.50-5.50)
[2016-11-05 06:18] LABS: ANION GAP 11.9 (10.0-19.0); BLOOD UREA NITROGEN 12 mg/dL (6-24); CALCIUM 7.5 mg/dL (8.5-10.5); CHLORIDE 101 mMol/L (96-110); CO2 24 mMol/L (22-32); CREATININE 0.8 mg/dL (0.5-1.1); ESTIMATED GFR (MDRD EQUATION) > 60; SODIUM 134 mMol/L (135-145)
[2016-11-05 06:20] LABS: POTASSIUM 2.9 mMol/L (3.7-5.1)
--- NOTE | 2016-11-05 13:15 | NUR ---
Call from Gianni at [facility] in [place], [place] and they will accept patient when ready for discharge. Talked to a daughter and granddaughter in the hallway as nursing is with patient and Teresa is in the room also. Updated the family and they will update patient and Teresa. They talk about the information from her EGD. Will update [facility] on Tuesday regarding patient. Will follow.
--- NOTE | 2016-11-05 16:15 | NUR ---
Significant Event: A/O X3. UP WITH 1 ASSIST, GB AND WALKER. DENIES PAIN. INCONTINENT OF BOWEL & BLADDER. PERIAREA EXCORIATED, ALOE VESTA APPLIED. LEFT CHEST PORT CATH TUTU'D, NOW HAS GOOD BLOOD RETURN. NS INFUSING @ 100 ML/HR. KCL 40 MEW IV GIVEN X1. EGD DONE THIS AM. CT OF ABDOMEN DONE IN AFTERNOON. KEEP NPO. LEMON SWABS GIVEN TO HELP WITH DRYNESS IN MOUTH. FAMILY AT BEDSIDE. Follow up: CONTINUE TO MONITOR.
[2016-11-05 18:01] LABS: HEMOGLOBIN 10.3 g/dL (10.0-15.0)
[2016-11-05 18:03] LABS: HEMATOCRIT 31.5 % (33.0-46.0)
[2016-11-05 20:40] LABS: HEMATOCRIT 28.7 % (33.0-46.0); HEMOGLOBIN 9.5 g/dL (10.0-15.0); MCH 29.5 pg (27.0-34.0); MCHC 33.1 gm/dL (32.0-36.5); MCV 89.1 fl (83.0-98.0); MPV 8.4 fl (9.4-12.4); PLATELET COUNT 242 K/uL (150-450); RBC 3.22 M/uL (3.50-5.50); RDW-CV 18.4 % (11.9-14.6); WBC 7.2 K/uL (4.0-11.0)
[2016-11-05 21:23] LABS: LYMPHOCYTE # 0.3 K/uL (0.8-4.0); LYMPHOCYTE % 4 %; MONOCYTE # 0.4 K/uL (0.0-1.0); SEGMENTED NEUTROPHIL # 3.4 K/uL (1.8-7.8); SEGMENTED NEUTROPHIL % 47 %
[2016-11-05 21:24] LABS: BILIRUBIN URINE NEGATIVE (NEGATIVE); BLOOD URINE 25 /UL (NEGATIVE); COLOR URINE YELLOW (YELLOW); GLUCOSE URINE NEGATIVE (NEGATIVE); KETONE URINE 5 mg/dL (NEGATIVE); LEUKOCYTES URINE 25 /UL (NEGATIVE); NITRITE URINE POSITIVE (NEGATIVE); PH URINE 6.5 (4.0-8.0); PROTEIN URINE 15 mg/dL (NEGATIVE); UROBILINOGEN URINE NORMAL (NORMAL)
[2016-11-05 21:24] LABS: ABSOLUTE NEUTROPHIL CT (ANC) 6.6 K/uL (1.8-7.8); BANDED NEUTROPHIL # 3.2 K/uL (0.0-0.1); BANDED NEUTROPHILS % 45 %
[2016-11-05 21:28] LABS: TURBIDITY URINE CLEAR (CLEAR)
[2016-11-05 21:37] LABS: BACTERIA URINE MANY (NEGATIVE); EPITHELIAL URINE RARE #/HPF (NEGATIVE); MUCUS URINE 1+ (NEGATIVE); RBC URINE RARE #/HPF (NEGATIVE)
[2016-11-06 06:21] LABS: HEMATOCRIT 25.6 % (33.0-46.0); HEMOGLOBIN 8.4 g/dL (10.0-15.0); MCH 29.9 pg (27.0-34.0); MCHC 32.8 gm/dL (32.0-36.5); MCV 91.1 fl (83.0-98.0); MPV 8.7 fl (9.4-12.4); PLATELET COUNT 223 K/uL (150-450); RBC 2.81 M/uL (3.50-5.50); RDW-CV 18.5 % (11.9-14.6); WBC 8.2 K/uL (4.0-11.0)
[2016-11-06 06:31] LABS: BLOOD UREA NITROGEN 9 mg/dL (6-24); CHLORIDE 104 mMol/L (96-110); CO2 24 mMol/L (22-32); CREATININE 0.7 mg/dL (0.5-1.1); ESTIMATED GFR (MDRD EQUATION) > 60; SODIUM 138 mMol/L (135-145)
[2016-11-06 06:41] LABS: ANION GAP 12.9 (10.0-19.0); CALCIUM 7.1 mg/dL (8.5-10.5); POTASSIUM 2.9 mMol/L (3.7-5.1)
[2016-11-06 07:24] LABS: ABSOLUTE NEUTROPHIL CT (ANC) 6.8 K/uL (1.8-7.8); BANDED NEUTROPHIL # 1.6 K/uL (0.0-0.1); BANDED NEUTROPHILS % 20 %; LYMPHOCYTE # 0.6 K/uL (0.8-4.0); LYMPHOCYTE % 7 %; MONOCYTE # 0.7 K/uL (0.0-1.0); SEGMENTED NEUTROPHIL # 5.2 K/uL (1.8-7.8); SEGMENTED NEUTROPHIL % 63 %
--- NOTE | 2016-11-06 07:25 | NUR ---
Significant Event: AT 1945, DAUGHTER'S CALLED NURSE IN TO SAY SOMETHING WASN'T RIGHT. PT FELT HOT, SHE WAS CONFUSED AND SHE WAS POSSIBLY RUNNING A TEMP. HER TEMP WAS 102.5 AXI. HR WAS IN THE UPPER 90s-LOW 100s. SHE WAS LETHARGIC AND UNABLE TO CARRY ON A CONVERSATION. SHE DID NOT ANSWER ANY QUESTIONS FOR ME. SHE ONLY TOLD HER FAMILY, SHE DIDN'T FEEL GOOD. DR. ZUÑIGA WAS CALLED AND HE ORDERED BLOOD CULTURES (PORT AND PERIPHERAL WERE DRAWN), CXR, URINE CULTURE WITH CATH PLACEMENT, FLAGYL TO CHANGE TO IV AND ZOSYN IV. DR. HEATH WAS HERE TO SEE PT AND FAMILY. HE GAVE OPTIONS BUT ESSENTIALLY SAID SHE WAS NOT A SURGICAL CANDIDATE AT LEAST FAR REMOVING OR BYPASSING THE TUMOR. HE SIGNED OFF FROM A SURGICAL STANDPOINT UNLESS THEY WANT TO PROCEED WITH A G-TUBE FOR DECOMPRESSION PURPOSES ONLY. BY 0130, SHE WAS AWAKE AND ALERT BUT COULD NOT REMEMBER ANY OF THE EVENTS OF THE EVENING. HER FEVER HAD BROKEN AND SHE WAS 98.2. AXI. SHE HAS BEEN OFF AND ON 2L ALL NIGHT. SHE WILL RUN REALLY WELL WITH SATS IN THE LOW 90s WHILE ON ROOM AIR AND THEN WILL START DROPPING HER SATS. DENIES SOB. DENIES PAIN. Follow up:
--- NOTE | 2016-11-06 17:51 | NUR ---
Significant Event: ORIENTED X3, FORGETFUL AT TIME. NARCOLEPIC SO FALLS ASLEEP AT TIMES. STARTED PROVIGIL PO, CRUSHED AND DISSOLVED IN WATER. CAN HAVE SMALL AMOUNT OF ICE CHIPS AND PROVIGIL, OTHERWISE NPO. FREQUENT INCONTINENT LOOSE, WATERY STOOLS. PERIAREA EXCORIATED, ALOE VEST APPLIED WITH EACH CHANGE. DODGE CATHETER WITH 450 ML UOP. LEFT CHEST PORT WITH NS @ 100 ML/HR AND INTERMITTENT ANTIBIOTICS. FAMILY AT BEDSIDE ALL SHIFT. HIPPA CODE WORD ADDED TO PROFILE. PATIENT DOES NOT WANT [facility] TO BE ALLOWED TO VISIT OR CALL HER. Follow up: CONTINUE TO MONITOR.
[2016-11-06 18:27] LABS: HEMATOCRIT 26.2 % (33.0-46.0); HEMOGLOBIN 8.5 g/dL (10.0-15.0)
--- NOTE | 2016-11-07 04:40 | NUR ---
Significant Event: A/O, forgetful/drowsy, VSS on RA, afebrile, patient had x6 stools, incontinent, morales had 375 ml out, Nystatin powder started to red/burning periarea/inner thighs, tolerating minimal ice chips, denies pain, repositioned Q2hr, patient made confidential tonight Follow up: continue plan of care
[2016-11-07 06:15] LABS: BLOOD UREA NITROGEN 8 mg/dL (6-24); CHLORIDE 107 mMol/L (96-110); CO2 21 mMol/L (22-32); CREATININE 0.6 mg/dL (0.5-1.1); ESTIMATED GFR (MDRD EQUATION) > 60; SODIUM 140 mMol/L (135-145)
[2016-11-07 06:22] LABS: ANION GAP 14.7 (10.0-19.0); CALCIUM 7.2 mg/dL (8.5-10.5); POTASSIUM 2.7 mMol/L (3.7-5.1)
[2016-11-07 06:27] LABS: HEMATOCRIT 26.2 % (33.0-46.0); HEMOGLOBIN 8.3 g/dL (10.0-15.0); MCH 29.4 pg (27.0-34.0); MCHC 31.7 gm/dL (32.0-36.5); MCV 92.9 fl (83.0-98.0); MPV 8.5 fl (9.4-12.4); PLATELET COUNT 254 K/uL (150-450); RBC 2.82 M/uL (3.50-5.50); RDW-CV 18.5 % (11.9-14.6); WBC 8.3 K/uL (4.0-11.0)
[2016-11-07 06:59] LABS: ABSOLUTE NEUTROPHIL CT (ANC) 6.8 K/uL (1.8-7.8); BANDED NEUTROPHIL # 1.6 K/uL (0.0-0.1); BANDED NEUTROPHILS % 19 %; LYMPHOCYTE # 0.6 K/uL (0.8-4.0); LYMPHOCYTE % 7 %; MONOCYTE # 0.7 K/uL (0.0-1.0); SEGMENTED NEUTROPHIL # 5.2 K/uL (1.8-7.8); SEGMENTED NEUTROPHIL % 63 %
--- NOTE | 2016-11-07 10:06 | NUR ---
A - CONSULT RECEIVED FOR TPN. COMPLETE GASTRIC OUTLET OBSTRUCTION. OVARIAN CA W/ PELVIC TUMORS. L) CHEST PORT. ONLY TOLERATED CLEAR LIQUIDS BIZTALK ARCHITECT. HT: 63" WT: 215# BMI: 38.0. LABS: K+ 2.7, GLU 67, ALB 2.2, MG 1.5, HGB/HCT 8.3/26.2. MEDS: D5NS, KCL, ZOSYN, FLAGYL, WELLBUTRIN, SYNTHROID, BOWEL/NAUSEA, PROTONIX. DIET: NPO x 3 NEEDS: 2203-2315 KCAL (17-23 KCAL/KG), 97-117 G PRO (1-1.2 G/KG), 2440 ML FLUID (25 ML/KG) D - ALTERED GI FUNCTION R/T GASTRIC OUTLET OBSTRUCTION AEB NPO, NEED FOR PARENTERAL NUTRITION. I - GOAL FOR NUTRITION INITIATION W/IN 48 HRS. REC TPN @ 95 ML/HR W/ 250 ML 20% LIPIDS MWF TO PROVIDE 9748-5090 KCAL (AVG 2537) AND 97 G PRO. M/E - WILL MONITOR POC, GI FUNCTION F/U IN 1-3 DAYS.
--- NOTE | 2016-11-07 10:15 | NUR ---
REC TPN @ 95 ML/HR W/ 250 ML 20% LIPIDS MWF.
--- NOTE | 2016-11-07 15:42 | NUR ---
Significant Event: VSS. ORIENTED X3 BUT FORGETFUL AT TIMES. FALLS ASLEEP OFTEN D/T NARCOLEPSY AND REFUSING TO TAKE PROVIGIL. LEFT CHEST PORT INFUSING D5 IN 1/2 NS WITH 40 MEQ KCL. INTERMITTENT IV ANTIBIOTICS. 2 GM MG IV REPLACED. 60 MEQ OF KCL REPLACED. RE-CHECK OF K+ WAS 3.3, WILL GIVEN ANOTHER 40 MEQ IV KCL TODAY TO REPLACE. DODGE CATHETER WITH 500 ML UOP. INCONTINENT OF STOOL X5. PERIAREA EXCORIATED AND RED. NYSTATIN CHANGED FROM POWDER TO OINTMENT. WILL POSSIBLY START TPN/LIPIDS TOMORROW. FAMILY AT BEDSIDE ALLL SHIFT. Follow up: CM WORKING ON PLACEMENT.
[2016-11-08 04:43] LABS: ANION GAP 9.4 (10.0-19.0); BLOOD UREA NITROGEN 4 mg/dL (6-24); CHLORIDE 110 mMol/L (96-110); CO2 24 mMol/L (22-32); CREATININE 0.6 mg/dL (0.5-1.1); ESTIMATED GFR (MDRD EQUATION) > 60; MAGNESIUM 2.1 mg/dL (1.8-2.6); POTASSIUM 3.4 mMol/L (3.7-5.1); SODIUM 140 mMol/L (135-145)
[2016-11-08 04:44] LABS: CALCIUM 7.4 mg/dL (8.5-10.5)
--- NOTE | 2016-11-08 04:44 | NUR ---
Significant Event: A/O, drowsy, forgetful sometimes, VSS, 1-2L O2 while sleeping, afebrile, morales had 500 out, BM x3, inner thighs very red, nystatin ointment applied, continues to have occasional harsh cough, suction set up at bedside if needed, IVF and abt continue Follow up: continue to strengthen for transfer to [place]
[2016-11-08 04:47] LABS: HEMATOCRIT 26.4 % (33.0-46.0); HEMOGLOBIN 8.4 g/dL (10.0-15.0); MCH 29.4 pg (27.0-34.0); MCHC 31.8 gm/dL (32.0-36.5); MCV 92.3 fl (83.0-98.0); MPV 8.5 fl (9.4-12.4); PLATELET COUNT 271 K/uL (150-450); RBC 2.86 M/uL (3.50-5.50); RDW-CV 17.7 % (11.9-14.6); WBC 8.2 K/uL (4.0-11.0)
[2016-11-08 06:28] LABS: ABSOLUTE NEUTROPHIL CT (ANC) 7.3 K/uL (1.8-7.8); BANDED NEUTROPHIL # 0.1 K/uL (0.0-0.1); BANDED NEUTROPHILS % 1 %; LYMPHOCYTE # 0.2 K/uL (0.8-4.0); LYMPHOCYTE % 3 %; MONOCYTE # 0.2 K/uL (0.0-1.0); SEGMENTED NEUTROPHIL # 7.2 K/uL (1.8-7.8); SEGMENTED NEUTROPHIL % 88 %
--- NOTE | 2016-11-08 11:02 | NUR ---
TALKED TO PT'S RN TODAY. PT DOES NOT WANT A PICC PLACED YET; TPN/LIPIDS NOT STARTED.
--- NOTE | 2016-11-08 15:56 | NUR ---
Significant Event: A/O. VSS on RA. Denies pain. Up with 1 assist, walker and GB. Incontinent of 3 stools. Vizcaino to DD with 450ml UOP. Large emesis today, unable to measure all but what was caught was about 500ml clear fluid with black flecks. Refused several medications today. PICC nurse notified and states will be available to place 11/09. Follow up: CM working on placement
--- NOTE | 2016-11-08 16:45 | NUR ---
Received call this a.m. from [facility] and patient and family are anxious to get her moved to [place]. Reveiewed weekend notes and they are talking about patient starting TPN/Lipids. Called [facility] in [place] and talked with Gianni. She says they cannot do TPN but gave me facilities to call. Called [facility] in [place]. Spoke with nancy toth and she says they do not have a SNF but do have inpt rehab. Patient would not be able to tolerate 3 hours of therapy/ day so this is not an options. Left VMM for Nellie at [facility] in [place], [place]. Talked to Juan at [facility] and they are unable to do TPN. Talked to Pura at [facility] and they do not do TPN. Talked to patient and 2 daughters regarding information found. Patient shuts her eyes through most of the conversation. Daughter from [place] talks about facilities there. Daughter Teresa is tearful and they agree it is important for patient to be closer to [facility]. They say [facility] is not to far away. They say [facility] in [place] should be checked also. Told them I will keep looking. Spoke with Adalgisa at [facility] in [place]. Adalgisa says she is new but believes they can do TPN. She will check about the lipids. She says to fax referral to her and she will review it with their team. Received call from Nellie at [facility] and they are unable to do TPN. Await decision from [facility] as would be family's preference to be in [place]. Will call [facility] in the a.m. Have updated daughter from [place] in the hallway this afternoon. Ria quinn's nurse has talked to Dr. Tyler several times and has updated him. Will follow.
--- NOTE | 2016-11-09 04:33 | NUR ---
Patient A/Ox3. VSS on Ra. Rt chest port. One assist with walker. Lungs Clear/Diminished. Bowel sounds hyperactive, several BM's this shift. No complaints. Vizcaino. Periarea red and sore. Possible PICC placement for TPN and Lipids.
[2016-11-09 05:49] LABS: ANION GAP 10.8 (10.0-19.0); BLOOD UREA NITROGEN 3 mg/dL (6-24); CALCIUM 7.5 mg/dL (8.5-10.5); CHLORIDE 109 mMol/L (96-110); CO2 24 mMol/L (22-32); CREATININE 0.6 mg/dL (0.5-1.1); ESTIMATED GFR (MDRD EQUATION) > 60; MAGNESIUM 1.7 mg/dL (1.8-2.6); POTASSIUM 3.8 mMol/L (3.7-5.1); SODIUM 140 mMol/L (135-145)
[2016-11-09 05:56] LABS: HEMATOCRIT 28.9 % (33.0-46.0)
--- NOTE | 2016-11-09 12:15 | NUR ---
This a.m. spoke with Jackelyn at [facility] in [place], [place] and they are unable to accept TPN. Spoke with daughters and told them will call [facility] mid morning if they have not called me. Spoke with Adalgisa at [facility] and do to shortage of RNs they are not able at this time to accept a patient on TPN. Spoke with patients 2 daughters in waiting area outside of patient's room (they do not want patient at this time to know what I have found out). Told them [facility] unable to do the TPN. Daughters talk about wanting to get her to [place] to be closer to family. They wonder if [facility] will accept her as skilled pt without TPN. Called Adalgisa and she will discuss with RAY. Call back from [place] and answered her questions regarding chemo and radiation. Family says they will consider both if recommended by the [place] Drs in [place]. Call back from [place] and they will not accept her as a skilled patient. If she wants to come as a pallative care/Hospice/comfort cares patient they will accept her. Family does not want the later. They ask me to contact [facility] in [place]. Called and left message for Gianni at [place] as she is in a meeting. They also decide they do want to look at TPN in [place]. They would like me to contact [facility] [place] as their website says they do TPN. Called and spoke with Marlene at [facility] and they will consider her. Information faxed. Update to Ria and she is going to be calling Dr. Tyler with an update. Will follow.
--- NOTE | 2016-11-09 18:38 | NUR ---
Significant Event:Patient with 2 loose stools this shift. Continues to report nausea-zofran given. Starting on TPN/Lipids for nutrition. Case management working on placement. Follow up:
--- NOTE | 2016-11-10 04:55 | NUR ---
Significant Event: A/O, VSS on RA, afebrile, TPN initiated at 1845 to L)chest port, monitoring blood sugars Q6hrs, incontinent of stool x2, repositioned Q2hr, morales had 1175ml out, tolerating swallowing pills, harsh cough continues Follow up: continue to work on placement options
[2016-11-10 06:18] LABS: INR - (THERAPEUTIC) 1.24 (0.92-1.07)
[2016-11-10 06:44] LABS: ANION GAP 10.1 (10.0-19.0); POTASSIUM 4.1 mMol/L (3.7-5.1)
--- NOTE | 2016-11-10 14:10 | NUR ---
A - NUTRITION FOLLOW-UP. C-DIFF POSITIVE. TPN/LIPIDS STARTED 11/[address] RECOMMENDATIONS. NPO. PER RN. HAD EGD 11/05. MEDS: LASIX, ZOFRAN. LABS: GLU 114, BUN 3, MG 1.7 DIET: NPO SINCE 11/05. TPN STARTED 11/09, 95ML/HR WITH 250ML OF 20% LIPIDS 3X/WEEK, PROVIDING [id number] KCAL, 97 GRAMS PROTEIN-100% OF PT'S NEEDS. EST NEEDS: 3708-1449 KCAL, 97-117 GRAMS PROTEIN, FLUID NEEDS: 1ML/KCAL D - INADEQUATE ORAL INTAKE RELATED TO ALTERED GI FUNCTION EVIDENCED BY NEED FOR PARENTERAL NUTRITION. I - CONTINUE W/ TPN AT 95ML/HR WITH 250ML OF 20% LIPIDS 3 TIMES PER WEEK. M/E - GOAL: TPN WILL PROVIDE 100% OF PATIENT'S NEEDS IN 3-5 DAYS OR UNTIL ORAL DIET ABLE TO START.
--- NOTE | 2016-11-10 15:15 | NUR ---
Tried to call Marlene at [facility] [place] and had to leave a VMM. Talked to daughter Evelyne and updated her. She says they did more looking last evening and not sure they want [facility] as they found other options with higher ratings. She says a friend mentioned her mom is at [facility] in [place] and they are pleased. Told her I can make a referral to [facility] to see if qualifies. Told her there is also a [facility] in [place]. We looked up the address and it is within [facility] and Evelyne works within [place], just not for them and she says that option would be great. She also has names of some skilled facilities, [facility], [facility] and [facility] all in [place]. We then go talk with patient and daughter Teresa and I updated them. They are in agreement with looking in [place] and are anxious to get her to next level of care. She did better with therapy today and has been more awake. Referral made to Estefanía with [facility], she will be out tomorrow and meet with patient and family. Estefanía will make the referral to [place] if patient qualifies for LTAC. Yaima GREWAL assisting with making calls. Will follow.
--- NOTE | 2016-11-10 15:23 | NUR ---
I called [facility] [phone] and left a vm with Rosy, they have snf,independent, nursing home. [facility] [phone] and left vm with Whitney. [facility] I spoke with them and they do not do tpn/lipids. [facility] [phone] and left a vm. WIll continue to work on placement.
--- NOTE | 2016-11-10 18:48 | NUR ---
Patient continues to tolerate her po medications with minimal n/v. She received IV Zofran x 1 today. TPN/Lipids continue as ordered. She denies c/o pain. Ambulates with 1 SBA/walker. Daughters remain supportive and are working with case management for placement.
--- NOTE | 2016-11-11 05:21 | NUR ---
Patient A/Ox3. VSS on RA. Up standby assist with walker/gaitbelt. Lungs clear/diminished. Bowel sounds present, no BM this shift. Vizcaino 2600out. Port to chest, TPN/Lipids running. No Complaints. Isolation for Cdiff. Waiting on placement in [place]. ACCU checks q6hrs. 05,11,17,23.
[2016-11-11 07:40] LABS: BASOPHIL # 0.1 K/uL (0.0-0.2); BASOPHIL % 0.9 %; EOSINOPHIL # 0.3 K/uL (0.0-0.5); EOSINOPHIL % 4.1 %; HEMATOCRIT 29.5 % (33.0-46.0); HEMOGLOBIN 9.2 g/dL (10.0-15.0); IMMATURE GRANULOCYTE # 0.1 K/uL (0.0-0.3); IMMATURE GRANULOCYTE % 1.2 %; LYMPHOCYTE # 0.5 K/uL (0.8-4.0); LYMPHOCYTE % 8.1 %; MCH 29.1 pg (27.0-34.0); MCHC 31.2 gm/dL (32.0-36.5); MCV 93.4 fl (83.0-98.0); MONOCYTE # 0.5 K/uL (0.0-1.0); MONOCYTE % 6.9 %; MPV 8.2 fl (9.4-12.4); NEUTROPHIL # (ANC) 5.2 K/uL (1.8-7.8); NEUTROPHIL % 78.8 %; NRBC % 0 /100WBC (0-0.00); PLATELET COUNT 295 K/uL (150-450); RBC 3.16 M/uL (3.50-5.50); RDW-CV 16.8 % (11.9-14.6); WBC 6.7 K/uL (4.0-11.0)
[2016-11-11 08:00] LABS: BLOOD UREA NITROGEN 12 mg/dL (6-24); CALCIUM 7.6 mg/dL (8.5-10.5); CHLORIDE 103 mMol/L (96-110); CO2 26 mMol/L (22-32); CREATININE 0.8 mg/dL (0.5-1.1); ESTIMATED GFR (MDRD EQUATION) > 60; SODIUM 137 mMol/L (135-145)
--- NOTE | 2016-11-11 16:41 | NUR ---
Patient more alert today and ambulated several times around the room and to the bathroom. Vizcaino removed and patient voids/incontinent of large amounts of urine. TPN continues as ordered per port. Port dressing/stafford needle changed today. No c/o pain and minimal c/o nausea noted. Zofran po given x 1. Daughters continue to work on placement with hopes of getting her closer to family in [place].
--- NOTE | 2016-11-11 17:51 | NUR ---
Estefanía from [facility] here in the a.m. to assess patient and meet with the daughters. Spoke with daughters earlier today and updated them on information found and who has not called back yet. Received call from randy and she contacted Erica at [facility] and they will be calling me. Received call from Erica at [facility] and she is helping out as they have adm. staff out. She says to fax referral and they will consider patient. Information faxed to [facility]. Did receive call from Rochelle with [facility] and she is on the road, but working with their team also. Answered her questions. She says team will review the information and it will probably be tomorrow morning when she calls with their decision. Spoke with daughters in the afternoon and updated them. Told them I have not heard back from [facility] and has not called them again since looking at [facility]. They would like me to call them and to put her on the waiting list. They say Estefanía talked to them about team may not [facility] because of possible need for chemo, but she is going to review the information with her team. They wonder if [facility] will be the same. Told them I don't know, but a lot of facilities won't accept when patient is actively receiving chemo or radiation. They says they know I told them that before, but they don't like it and think it is wrong for facilities to do that. They ask me to follow up with [facility] and to put her on their waiting list, as that is one of their favorite SNFs. Told them I will. WIll follow.
--- NOTE | 2016-11-12 03:23 | NUR ---
Significant Event:pt aaox3 can be forgetful at times.pt transfers with 1-2 assist, gaitbelt walker, needs lots of encouragment.pt given complete shower at hs per request. port to left/mid chest running TPN at 95ml/hr. pt npo however is able to takes medication po with no complication noted. prn zofran given at hs.harmony area red, nystatin applied, continues to have loose stools. is incontient of bowel and bladder. continues to be on isolation for cdiff. daughters in room most of shift. genearlized edema janine in lower bilateral legs. also noted to be very red. uses call light approp. Follow up:
[2016-11-12 04:09] LABS: BASOPHIL # 0.1 K/uL (0.0-0.2); BASOPHIL % 0.6 %; EOSINOPHIL # 0.2 K/uL (0.0-0.5); EOSINOPHIL % 2.7 %; HEMATOCRIT 29.1 % (33.0-46.0); HEMOGLOBIN 8.9 g/dL (10.0-15.0); IMMATURE GRANULOCYTE # 0.1 K/uL (0.0-0.3); IMMATURE GRANULOCYTE % 1.1 %; LYMPHOCYTE # 0.5 K/uL (0.8-4.0); MCHC 30.6 gm/dL (32.0-36.5); MCV 94.8 fl (83.0-98.0); MONOCYTE # 0.5 K/uL (0.0-1.0); MONOCYTE % 5.8 %; MPV 8.3 fl (9.4-12.4); NEUTROPHIL # (ANC) 6.9 K/uL (1.8-7.8); NEUTROPHIL % 83.8 %; NRBC % 0 /100WBC (0-0.00); PLATELET COUNT 268 K/uL (150-450); RBC 3.07 M/uL (3.50-5.50); RDW-CV 16.7 % (11.9-14.6); WBC 8.3 K/uL (4.0-11.0)
[2016-11-12 04:20] LABS: ANION GAP 10.6 (10.0-19.0); POTASSIUM 3.6 mMol/L (3.7-5.1)
[2016-11-12 04:27] LABS: CREATININE 0.8 mg/dL (0.5-1.1); ESTIMATED GFR (MDRD EQUATION) > 60
--- NOTE | 2016-11-12 10:52 | NUR ---
A-NUTRITION F/U GENERALIZED EDEMA; ESPECIALLY IN BLE. IN ISOLATION FOR C-DIFF; LOOSE STOOLS CONTINUE. MINIMAL C/O NAUSEA. LABS: NA 135, K+ 3.6, GLU 217, BUN 12, BALL FRINGE MACHINE OPERATOR 0.8 MEDS: LASIX, FLAGYL DIET RX: NPO; 95 ML/HR TPN W/250 ML 20% LIPIDS MWF. THIS IS PROVIDING [id number] KCALS AND 97 GM PROTEIN EST NUTR. NEEDS: 1918-2595 KCALS AND 97-117 GM PROTEIN D-AT NUTRITION RISK W/INADEQUATE ORAL INTAKE R/T ALTERED GI FXN AEB NEED FOR TPN. I-CONTINUE W/CURRENT DIET RX M/E-GOAL: TPN/LIPIDS TO MEET NUTR. NEEDS UNTIL ORAL DIET CAN BE RESUMED 1)F/U GI, LABS, TPN, AND POC IN 3-5 DAYS 2)ASSIST NEEDED
--- NOTE | 2016-11-12 15:57 | NUR ---
Significant Event: pt up to bathroom and chair one asst. Pt takes long to get around. Pt has some inc.urine in brief. No c/o pain. Pt family lets her sleep most of day. Follow up:
--- NOTE | 2016-11-12 18:19 | NUR ---
Talked with daughters several times today. Left VMM for Rosy at [facility]. Left VMM for Estefanía with [facility]. Talked to several SNFs ([facility] and [facility] and they do not put people on waiting lists). Called and spoke with Rochelle at [facility] late morning and she says she thought [facility] called and told me their decision. She says they are clinically denying her and can't accept her to LTAC. Spoke with Estefanía at [facility] and she says yesterday she thought [facility] in [place] was going to consider her. However today they say they do not have any openings and have 13 on their waiting list. So [facility] in [place] is a no at this time. Estefanía says they told her the [facility] facilities do TPN. Told her [facility] told us they do not do TPN. Did receive a call from Rosy at [facility] and she says they do TPN. Referral faxed. Left VMM for adm coordintator at [facility] [place] in [place]. Updated her daughters and they are disappointed about the LTACS and glad I have faxed to [facility] and that left VMM for [facility] [place]. They say they have talked about if she was stronger if they could care for her at their homes and they say with working and the lay out of their homes neither home is a safe option. Told them will continue to trying to find a facility that will accept her with TPN. Did try to call Rosy at [facility] around 1630 and had to leave VMM. Will follow.
--- NOTE | 2016-11-13 05:15 | NUR ---
Significant Event: PATIENT IS ALERT AND ORIENTED. VERY SLOW GAIT AND MOVEMENTS. SHE ANSWERS APPRORIATLY. INTERMITTENT CONFUSION.URINARY INCONTINENCE. LOOSE STOOLS. NONE NOTED ON THIS SHIFT. NPO WITH SIPS/CHIPS. Follow up:
--- NOTE | 2016-11-13 16:35 | NUR ---
CONSULT NOTED. PT MAY TRY ENSURE, ICE CREAM ETC. PER RN, PT DOES NOT LIKE THE ENSURE BUT DID TOLERATE SAMPLE OF ENSURE CLEAR. WILL SEND BID AND MONITOR TOLERANCE. F/U IN 2-3 DAYS.
--- NOTE | 2016-11-13 19:02 | NUR ---
PATIENT UP TO CHAIR AND BR W/ 1 ASSIST AND WALKER. DAUGHTER AT BEDSIDE MOST OF DAY. PATIENT HAD LOOSE STOOLS X4. PATIENT ATE SMALL AMOUNTS OF ICE CREAM AND CLEAR ENSURE, WITH MINIMAL NAUSEA. RA MARCIA.
--- NOTE | 2016-11-14 03:36 | NUR ---
Patient A/Ox3 but forgetful at times. VSS on RA. Heavy two assist to bed. Port to Chest TPN @ 95ml/hr. Lungs slightly course in bases. Bowel sounds present, 1 sm bm this shift. Has been tolerating clears well. Incont of stool and sometimes urine. States that its hard to start a stream and has urgency which isn't normal for her. Waiting placement in [place] to be closer to family.
[2016-11-14 04:47] LABS: HEMATOCRIT 25.6 % (33.0-46.0); HEMOGLOBIN 8.3 g/dL (10.0-15.0); MCH 29.9 pg (27.0-34.0); MCHC 32.4 gm/dL (32.0-36.5); MCV 92.1 fl (83.0-98.0); MPV 8.5 fl (9.4-12.4); PLATELET COUNT 254 K/uL (150-450); RBC 2.78 M/uL (3.50-5.50); RDW-CV 16.7 % (11.9-14.6); WBC 6.7 K/uL (4.0-11.0)
[2016-11-14 05:02] LABS: ANION GAP 11.3 (10.0-19.0); BLOOD UREA NITROGEN 23 mg/dL (6-24); CALCIUM 7.6 mg/dL (8.5-10.5); CHLORIDE 100 mMol/L (96-110); CO2 27 mMol/L (22-32); CREATININE 0.9 mg/dL (0.5-1.1); ESTIMATED GFR (MDRD EQUATION) > 60; SODIUM 135 mMol/L (135-145)
[2016-11-14 05:04] LABS: POTASSIUM 3.3 mMol/L (3.7-5.1)
[2016-11-14 05:35] LABS: ABSOLUTE NEUTROPHIL CT (ANC) 5.5 K/uL (1.8-7.8); BANDED NEUTROPHIL # 0.9 K/uL (0.0-0.1); BANDED NEUTROPHILS % 13 %; LYMPHOCYTE # 0.5 K/uL (0.8-4.0); LYMPHOCYTE % 8 %; MONOCYTE # 0.4 K/uL (0.0-1.0); SEGMENTED NEUTROPHIL # 4.6 K/uL (1.8-7.8); SEGMENTED NEUTROPHIL % 69 %
--- NOTE | 2016-11-14 16:09 | NUR ---
Significant Event: pt up to bathroom often. One mod loose bm. K 3.3 extra potassium po. Pt daughter got pt shoes and pt seems walk better with them. PT worked with pt this am. Pt does well with drinking fluids. Follow up:
--- NOTE | 2016-11-15 04:12 | NUR ---
Significant Event: A/O, VSS, RA, afebrile, patient ambulates 1 assist/walker to bathroom, slow movement and gets distracted easily, TPN infusing to L)chest port, accuchecks wnl, tolerating sips of clear liquids, BM x2 moderate/loose, incontinent of urine Follow up: continue to work on placement
[2016-11-15 05:00] LABS: BASOPHIL # 0.1 K/uL (0.0-0.2); BASOPHIL % 1.2 %; EOSINOPHIL # 0.1 K/uL (0.0-0.5); EOSINOPHIL % 2.6 %; HEMATOCRIT 30.1 % (33.0-46.0); HEMOGLOBIN 9.4 g/dL (10.0-15.0); IMMATURE GRANULOCYTE # 0.1 K/uL (0.0-0.3); LYMPHOCYTE # 0.5 K/uL (0.8-4.0); LYMPHOCYTE % 10.3 %; MCH 28.9 pg (27.0-34.0); MCHC 31.2 gm/dL (32.0-36.5); MCV 92.6 fl (83.0-98.0); MONOCYTE # 0.5 K/uL (0.0-1.0); MONOCYTE % 9.3 %; MPV 8.4 fl (9.4-12.4); NEUTROPHIL # (ANC) 3.8 K/uL (1.8-7.8); NEUTROPHIL % 75.6 %; NRBC % 0 /100WBC (0-0.00); RBC 3.25 M/uL (3.50-5.50); RDW-CV 16.6 % (11.9-14.6)
[2016-11-15 05:01] LABS: PLATELET COUNT 316 K/uL (150-450)
[2016-11-15 05:14] LABS: ALBUMIN 2.6 gm/dL (3.5-5.0); ALK PHOS 76 IU/L (33-138); ALT 12 IU/L (12-78); ANION GAP 13.1 (10.0-19.0); AST 12 IU/L (10-40); BLOOD UREA NITROGEN 24 mg/dL (6-24); CALCIUM 8.1 mg/dL (8.5-10.5); CHLORIDE 97 mMol/L (96-110); CO2 27 mMol/L (22-32); CREATININE 0.9 mg/dL (0.5-1.1); ESTIMATED GFR (MDRD EQUATION) > 60; POTASSIUM 3.1 mMol/L (3.7-5.1); SODIUM 134 mMol/L (135-145); TOTAL PROTEIN 6.5 g/dL (6.0-8.4)
[2016-11-15 05:15] LABS: TOTAL BILIRUBIN 0.3 mg/dL (0.0-1.5)
--- NOTE | 2016-11-15 12:19 | NUR ---
A-NUTRITION F/U VISITED W/PT AND PT'S DAUGHTER RE: SUPPLEMENTS. PT LOVES THE ENSURE CLEAR; SHE IS RECEIVING THEM BID ON HER TRAYS AND GETTING THEM FROM NURSING IN [place]WE[place] PRN. SHE DOES NOT LIKE ENSURE; DOES NOT WANT TO RECEIVE IT. DISCUSSED MAGIC CUPS; PT WAS AGREEABLE TO TRYING THE [facility]. PT IS VERY EXCITED ABOUT HER DIET BEING ADVANCED TO FULL LIQUIDS. SHE REPORTS THAT SHE HAS A GOOD APPETITE. TOLERATING CLEAR LIQUIDS WITHOUT DIFFICULTY (+)BM/(+)BS LABS: NA 134, K+ 3.1, GLU 173, BUN 24, AIR BRAKE MAN 0.9, ALB 2.6 MEDS: K-TAB, MAG-OX DIET RX: FULL LIQUIDS W/ENSURE CLEAR BID. TOLERATING LIQUIDS WITHOUT DIFFICULTY. 95 ML/HR TPN W/250 ML 20% LIPIDS MWF; PROVIDING [phone] KCALS AND 97 GM PROTEIN. D-AT NUTRITION RISK W/INADEQUATE ORAL INTAKE R/T ALT. GI FXN AEB NEED FOR TPN/LIPID I-1)ADD MAGIC CUP QD 2)WHEN DIET ADVANCED TO SOLIDS AND PT TOLERATES WITHOUT DIFFICULTY, RECOMMEND D/C TPN/LIPIDS M/E-GOAL: PT TO TOLERATE FULL LIQUIDS WITHOUT DIFFICULTY 1)F/U PO INTAKE, SUPPLEMENT, GI, DIET RX, AND POC IN 3-5 DAYS 2)ASSIST NEEDED
--- NOTE | 2016-11-15 15:45 | NUR ---
Significant Event: pt up to chair and bathroom often. Pt trying full liquids first time this lunch. Blood in stool late am, we are going to check H&H this afternoon and call [id number]. Tylenol for ankles that are sore. PO magnesium started and IV K+40meq given. Zofran given this am. Pt having more loose bms today. Follow up:
[2016-11-15 16:30] LABS: HEMATOCRIT 27.2 % (33.0-46.0); HEMOGLOBIN 8.8 g/dL (10.0-15.0)
--- NOTE | 2016-11-15 16:45 | NUR ---
Several calls this a.m. with Rosy from [facility]. Answered her questions and faxed additional information. VMM from staff at [facility] [address] and they do not do TPN. Message early afternoon from Rosy at [facility] and they would like to do TPN but can not at this time due to their staffing and do not have enough temporary staff accountant. Called and spoke with daughter Grace and updated her. She says they out of the building for lunch but would like to meet around 1530 - 1600. She says they are realizing they may have to take Mom off the TPN and see how she does with orals. She says they advanced mom to full liquids today. She says their goal is to get mom to [place], get her stronger and reevaluate her needs. She says she has talked with [facility] in [place] and gave me the phone number to call. Called and spoke with Amira at [facility] and she says she told daughter they will look at patient if stopping the TPN. Told her they have verbally told me they will be and she says to fax referral. Referral faxed to Amira at [facility] in [place]. Talked with daughters Teresa and Grace. They discuss options and choices. they would like me to make referrals to [facility], [facility] [address] [facility] [place] [facility]. Answered their questions. Will follow.
--- NOTE | 2016-11-16 04:40 | NUR ---
Significant Event: A/O, VSS, RA, TPN and Lipids continue to L)chest port, incontinent of urine, small bms with each depends change, 1 assist/walker, very slow to bathroom, patient c/o pain to bilateral ankles, Tylenol given at 0150, needs cues and encouragement when ambulating to bathroom Follow up: continue to await placement
[2016-11-16 12:26] LABS: BASOPHIL # 0.1 K/uL (0.0-0.2); BASOPHIL % 0.7 %; EOSINOPHIL # 0.1 K/uL (0.0-0.5); EOSINOPHIL % 1.7 %; HEMATOCRIT 27.9 % (33.0-46.0); HEMOGLOBIN 8.9 g/dL (10.0-15.0); IMMATURE GRANULOCYTE # 0.1 K/uL (0.0-0.3); IMMATURE GRANULOCYTE % 0.7 %; LYMPHOCYTE # 0.5 K/uL (0.8-4.0); LYMPHOCYTE % 6.2 %; MCHC 31.9 gm/dL (32.0-36.5); MCV 93.9 fl (83.0-98.0); MONOCYTE # 0.7 K/uL (0.0-1.0); MPV 8.6 fl (9.4-12.4); NEUTROPHIL # (ANC) 6.8 K/uL (1.8-7.8); NEUTROPHIL % 82.7 %; NRBC % 0 /100WBC (0-0.00); PLATELET COUNT 287 K/uL (150-450); RBC 2.97 M/uL (3.50-5.50); RDW-CV 16.8 % (11.9-14.6); WBC 8.3 K/uL (4.0-11.0)
[2016-11-16 12:34] LABS: ANION GAP 10.1 (10.0-19.0); CALCIUM 8.2 mg/dL (8.5-10.5); POTASSIUM 3.1 mMol/L (3.7-5.1)
--- NOTE | 2016-11-16 17:33 | NUR ---
Significant Event: Patient A/O x 3. Up with 1A and walker. VSS on RA throughout the day. Crackles to bilateral lower lobes. L)chest port with TPN infusing at 95 ml/h. Potassium 3.1 today so infusing a total of 40 meq of KCL. TPN paused while this is infusing. Daughters at bedside throughout the day. Accu checks q6h without sliding scale. Nauseated after breakfast and minimal PO intake since then. Follow up: Continue as per plan of care. Plan to discharge to [place] to skilled care tomorrow with daughters.
--- NOTE | 2016-11-16 17:48 | NUR ---
Call this a.m. from Amira with [facility] in [place], answered her questions. She thinks they would consider pt but not if comes by ambulance as they don't want to pay for the ambulance. Told her family said they would pay for ambulance. Amira says family can't pay as medicare considers receiving facility responsible. Referrals made to [facility] [address], [facility], [facility] and [facility] [place]. All have beds and information faxed. Called comm spec and got estimate of ambulance cost to [place]. Dr. Tyler talked to me and he says he and family have talked about not continuing TPN upon discharge. Told him that is what I have told faciliites today - pt would be skilled therapies but not TPN. Talked with daughters and updated them. They did not realize how much the ambulance would cost. They have been helping patient to the bathroom and in her room and think they would be able to transport her to [place]. [facility] called while I was meeting with them and they are willing to accept patient. Updated daughters. Grace is still interested in [facility]. Talked about what they would need to transport patient ie a walker and/or w/c. Talked about options where they can get the equipment. They want to wait and see if [facility] call back before making a decision. Grace does have contact information for [facility] and [facility] and they may call them as they have questions about cost when patient is self pay. They are hopeful she will be ableto rehab enough to either get to [facility] and if not will look at LTC. Call from Sheron at [facility] and she is looking at information for both [place] and [place]. Answered her questions and she says she will get back to me and let me know if they can accept or not. Called and updated daughter Grace regarding call from [facility]. She says they have talked and have decided they want [facility] and to go tomorrow if possible. Several calls with Amira at [facility] and they can accept patient tomorrow. She says their director medical affairs will follow her and does not need a call from the DrJaylen as has reviewed her information. Nurse to nurse # on the chart. Called and talked with Dr. Tyler and he says she can transfer tomorrow. He will be here before 8 to do her orders. Talked to daughters again and they got her a w/c and are still working on getting a walker. Talked to them about conversations with Amira and Dr. Tyler. Told them our plan would be for her to leave her around 0900 as [facility] would like her mid afternoon. Plan for patient to transfer to [facility] in [place] tomorrow via private car for skilled care. Will follow.
[2016-11-17 04:57] LABS: BASOPHIL % 0.7 %; EOSINOPHIL # 0.2 K/uL (0.0-0.5); EOSINOPHIL % 3.1 %; HEMATOCRIT 25.6 % (33.0-46.0); IMMATURE GRANULOCYTE % 0.4 %; LYMPHOCYTE # 0.5 K/uL (0.8-4.0); LYMPHOCYTE % 9.5 %; MCH 29.4 pg (27.0-34.0); MCHC 31.3 gm/dL (32.0-36.5); MCV 94.1 fl (83.0-98.0); MONOCYTE # 0.6 K/uL (0.0-1.0); MONOCYTE % 11.5 %; MPV 8.6 fl (9.4-12.4); NEUTROPHIL # (ANC) 4.1 K/uL (1.8-7.8); NEUTROPHIL % 74.8 %; NRBC % 0 /100WBC (0-0.00); PLATELET COUNT 270 K/uL (150-450); RBC 2.72 M/uL (3.50-5.50); RDW-CV 16.9 % (11.9-14.6); WBC 5.5 K/uL (4.0-11.0)
[2016-11-17 05:07] LABS: ANION GAP 11.7 (10.0-19.0); BLOOD UREA NITROGEN 27 mg/dL (6-24); CALCIUM 7.9 mg/dL (8.5-10.5); CHLORIDE 100 mMol/L (96-110); CO2 27 mMol/L (22-32); CREATININE 0.9 mg/dL (0.5-1.1); ESTIMATED GFR (MDRD EQUATION) > 60; INR - (THERAPEUTIC) 1.03 (0.92-1.07); POTASSIUM 3.7 mMol/L (3.7-5.1); PROTIME 10.8 SECONDS (9.8-11.4); SODIUM 135 mMol/L (135-145)
--- NOTE | 2016-11-17 06:36 | NUR ---
Significant Event: A/O, VSS, TPN continues, accuchecks wnl, denies pain, ambulating smoother/quicker, incontinent urine, BM x2, full liquids Follow up: transfer to [facility] in [place], [place] this am, daughters to transport
--- NOTE | 2016-11-17 09:07 | NUR ---
Transfer Summary: Patient A/O x 3 and up with 1 assist and with gaitbelt and walker. Vital signs stable: HR 76 in NSR, RR 18, BP 135/60, O2 saturation 91% on room air, temperature 97.6 F, and denies pain or shortness of breath. Given Tylenol at 0900 because patient states she "feels like a headache is coming on". Crackles to bilateral bases. Bowel sounds active with last BM 11/16. No problems voiding. Lower extremity edema 2-3+. Left chest port deaccessed and heparinized this morning. Calm and cooperative with cares. Family supportive and will transport patient to [facility]. Report given to MILANA Pickard at approximately 0845. She states she has no further questions at this time. Jesus CORTÉS 11/17/16
--- NOTE | 2016-11-17 09:31 | NUR ---
Patient left PCU at 0925 to [facility] and then with daughters in private care to skilled care in [place], [place]. No needs at time of discharge. Jesus CORTÉS 11/17/16
--- NOTE | 2016-11-17 09:36 | NUR ---
Patient transferring to [facility] in [place] for skilled care today. Orders faxed. Nurse has called nurse to nurse report. Daughters transferring patient via private vehicle. Called and spoke with Amira at [facility] to let her know patient has left our facility and is on her way to [place].
== END 2016-11-17 09:25 | DRG 377 ==
LOC: GPCU 17:24
PROVIDERS: Family Medicine; ADMIT Family Medicine
PROC: 30233N1 Transfusion of Nonautologous Red Blood Cells into Peripheral Vein, Percutaneous Approach (ICD-10-PCS; principal; 2016-11-03)
PROC: 0DJ68ZZ Inspection of Stomach, Via Natural or Artificial Opening Endoscopic (ICD-10-PCS; 2016-11-05)
DX: K92.2 Gastrointestinal hemorrhage, unspecified (principal); J18.9 Pneumonia, unspecified organism; A04.7 Enterocolitis due to Clostridium difficile; C56.9 Malignant neoplasm of unspecified ovary; K31.1 Adult hypertrophic pyloric stenosis; N39.0 Urinary tract infection, site not specified; B95.2 Enterococcus as the cause of diseases classified elsewhere; D62 Acute posthemorrhagic anemia; N82.0 Vesicovaginal fistula; E78.5 Hyperlipidemia, unspecified; E83.42 Hypomagnesemia; E87.6 Hypokalemia; F32.9 Major depressive disorder, single episode, unspecified; Z51.5 Encounter for palliative care; E66.01 Morbid (severe) obesity due to excess calories; E03.9 Hypothyroidism, unspecified; I73.00 Raynaud's syndrome without gangrene; Z91.81 History of falling; Z68.37 Body mass index [BMI] 37.0-37.9, adult; R73.03 Prediabetes
CPT/HCPCS: J1642; J2405; J2543; J2997; J3420; J3475; J3480; J7030; J7040; J7050; P9016; Q0162; Q9967